=== PATIENT | female | born 1945 | race Caucasian/White ===

== ENCOUNTER 2022-05-19 11:36 | Outpatient (CLI) | payer MEDICARE, OTHER, SELFPAY ==
--- NOTE | 2022-05-19 12:06 | CT_ITS ---
WS: [id number] CT ANGIOGRAM CAROTID ARTERIES HISTORY: TIA/HYPERTENSION TECHNIQUE: CT angiogram is performed of the carotid arteries. During arterial injection imaging is ob tained from the skull base to the aortic arch in 1.25 mm imaging. Coronal and sagittal reformats are submitted, MIP imaging also reviewed. Additional multiplanar reformats of the carotid arteries are frost bmitted. NASCET criteria utilized. All CT scans at [facility] use at least one of these dose optimization techniques: automated exposure control; mA and/or kV adjustment per patient size (includ es targeted exams where dose is matched to clinical indication); or iterative reconstruction. CONTRAST: Omnipaque 350; 95 mL IV. DLP: 289.91 mGy.cm COMPARISON: 06/21/2013 Right carotid: Common carotid artery: Arises from the innominate. Scattered plaque and intimal thickening but no hig h-grade stenosis. Internal carotid artery: Calcification of the bifurcation resulting in less than 50% stenosis. External carotid artery: Patent. Left carotid: Common carotid artery: Common carotid artery arises the from the base of the innominate. There is a s mall amount of calcified plaque. Mild intimal thickening. Internal carotid artery: Calcification at the bifurcation. No high-grade stenosis. External carotid artery: Patent. Right vertebral artery: Nonvisualized innocent heart. There is a very tiny intermittently visualized vertebral artery. Similar to the prior study. Left vertebral artery: Calcification at the origin of the vertebral artery. 50% stenosis at the origi n. Otherwise intact. Subclavian arteries: Dense calcific burden at the origin of the RIGHT subclavian artery. Suspect ther e is a significant stenosis involving the proximal RIGHT subclavian artery. This can be further evalu ated by dedicated ultrasound evaluation. The LEFT subclavian artery is patent. Upper thorax: Significant artifact through the upper thorax. Breathing motion in lung volumes are dec reased. Atherosclerotic plaque visualized thoracic aorta. Thyroid gland: No nodules. Osseous structures: Straightening of the normal cervical lordosis. Skull base: Negative. CT/CT angio neck [id number] IMPRESSION: 1. No significant carotid artery stenosis. Calcification at the bifurcations w ith stenosis less than 50%. No significant progression of disease since the cordelia or examination from 2012. 2. Absent very small caliber RIGHT vertebral artery intermittently visualized. Similar to the prior study. 3. Dense calcified plaque at the origin of the RIGHT subclavian artery. Suspec t there is probably significant stenosis. Recommend dedicated ultrasound evalua tion of the proximal RIGHT subclavian artery.
--- NOTE | 2022-05-19 12:06 | USCV_ITS ---
Tiesha Kaba Age: 76 Gender: F : 1945 Exam Date: 05/19/2022 12:37 Ordering Phys: Ricardo Coronado MD Technologist: Viviana Masters [place] [facility] [place]: Tia and Hypertension BP: / HR: 63 Rhythm: Sinus Technical Quality: Adequate MEASUREMENTS (Male / Female) Normal Values 2D ECHO LV Diastolic Diameter PLAX 4.2 cm 4.2 - 5.9 / 3.9 - 5.3 cm LV Systolic Diameter PLAX 2.8 cm IVS Diastolic Thickness 1.5 cm 0.6 - 1.0 / 0.6 - 0.9 cm IVS Systolic Thickness 2.0 cm LVPW Diastolic Thickness 1.6 cm 0.6 - 1.0 / 0.6 - 0.9 cm LVPW Systolic Thickness 2.0 cm LVOT Diameter 2.0 cm LV Ejection Fraction 2D Teich 62.8 % LV Ejection Fraction MOD 2C 35.6 % LV Ejection Fraction 2C AL 35.4 % LA Diameter 3.7 cm LA Width 4.0 cm LA Height 4.8 cm RA Width 4.2 cm RA Height 4.0 cm Aorta at Sinotubular Diameter 3.0 cm IVC Diameter 2.0 cm M-MODE Aortic Annulus Diameter 3.9 cm LA Ao Ratio MM 1.0 MV E Point Septal Separation 0.4 cm DOPPLER AV Peak Velocity 161.5 cm/s LVOT Peak Velocity 87.0 cm/s AV Area Cont Eq vti 1.9 cm squared AV Area Cont Eq pk 1.8 cm squared MV Area PHT 2.1 cm squared Mitral E to A Ratio 1.1 MV E' Velocity 77.0 cm/s Mitral E to MV E' Ratio 16.9 Mitral E to LV E' Lateral Ratio 28.6 Mitral E to LV E' Septal Ratio 12.0 TR Peak Velocity 272.8 cm/s TR Peak Gradient 29.8 mmHg TR Mean Velocity 199.4 cm/s TR Mean Gradient 18.4 mmHg TR Velocity Time Integral 92.4 cm TV Peak E Velocity 67.0 cm/s Right Atrial Pressure 3.0 mmHg Pulmonary Artery Systolic Pressu 32.8 mmHg PV Peak Velocity 83.3 cm/s RV Acceleration Time 0.1 s RV Ejection Time 0.3 s RV AcT/ET 0.4 FINDINGS Left Ventricle Normal left ventricular size, systolic function and mildly increased wall thickness, with no diagnostic regional wall motion abnormalities. Left ventricular ejection fraction is estimated at 65 %. Grade II diastolic dysfunction, moderately elevated filling pressures. Right Ventricle Normal right ventricular size and systolic function. Right ventricular systolic pressure 38 mmHg. Right Atrium Normal right atrial size. Right atrial pressure estimated at 8 mm Hg. Left Atrium Mildly increased left atrial size. Mitral Valve Severe mitral annular calcification. Trace mitral valve regurgitation. Aortic Valve Moderately thickened and calcified trileaflet aortic valve. Aortic valve sclerosis without significant stenosis. No aortic valve regurgitation. Tricuspid Valve Structurally normal tricuspid valve. Trace to mild tricuspid valve regurgitation. Pulmonic Valve Pulmonic valve not well visualized. No pulmonary valve stenosis. Trace pulmonary valve regurgitation. Pericardium No pericardial effusion. Aorta Normal size aortic root and proximal ascending aorta. IVC Mildly dilated inferior vena cava. CONCLUSIONS 1. Normal left ventricular size, systolic function and mildly increased wall thickness, with no diagnostic regional wall motion abnormalities. Left ventricular ejection fraction is estimated at 65 %. Grade II diastolic dysfunction, moderately elevated filling pressures. 2. Mild pulmonary hypertension with pulmonary pressure estimated at 38 mmHg. 3. Aortic valve sclerosis without significant stenosis. 4. Trace to mild tricuspid valve regurgitation. 5. No prior similar studies to compare. Tatiana Vega MD (Electronically Signed) Final Date: 23 May 2022 10:07 S
[2022-05-19 12:56] LABS: Blood Urea Nitrogen 14 mg/dL (8-23)
[2022-05-19] MEDS: iohexol 350 mg/mL 100 mL Btl IV (13:18)
== END 2022-05-19 11:37 | disposition home or self-care (01) ==
PROVIDERS: Family Provider Family Medicine; PCP Family Medicine; Visit Provider Family Medicine
DX: G45.9 Transient cerebral ischemic attack, unspecified (principal); I10 Essential (primary) hypertension
CPT/HCPCS: 70498; 82565; 84520; 93306

== ENCOUNTER 2022-06-23 14:43 | Inpatient (IN) | payer MEDICARE, OTHER, SELFPAY ==
[2022-06-23] VITALS (12 sets, daily range): BP systolic 103–174; BP diastolic 75–108; PULSE 65–133; RESP 16–30; TEMP 36.6–36.8; O2SAT 94–99; BMI 24.3
--- NOTE | 2022-06-23 14:48 | ED_ITS ---
HPI - SOB/Dyspnea General: Chief Complaint: Shortness of Breath/Dyspnea Stated Complaint: sob Time Seen by Provider: 06/23/22 14:48 History of Present Illness: HPI Narrative: Ms. Kaba is a 76-year-old lady with significant past medical history of hypertension and right subclavian artery occlusion who presents to the emergency department due to respiratory distress. She reports the past few nights noticing a congested feeling and gurgling this in her throat. Prior to presenting to the emergency department earlier today she developed more severe respiratory symptoms including shortness of breath. She does have a cough associated with this. Intensity symptoms is moderate to severe. EMS found patient to be hypoxemic on room air and respiratory distress end administered oxygen. Denies history of lung disease. Apparently recent echocardiogram was unremarkable. She does have sick contacts. No other specific changes in health, exacerbating, or alleviating factors identified. Onset (ago): hour(s) Timing: progressively worsening Severity: severe Review of Systems General: Reports: 10 or more systems reviewed and unremarkable except in HPI and below PFSH ED PFSH: Medical History (Updated 06/28/22 @ 00:01 by ) CAD (coronary artery disease) History of TIA (transient ischemic attack) Hyperlipemia Hypertension Right subclavian artery occlusion Physical Exam Const: COMMON NORMALS: alert GENERAL APPEARANCE: cooperative, well developed, in distress and ill appearing HENMT: COMMON NORMALS: normocephalic and atraumatic HEAD & SCALP: normocephalic and atraumatic Eye: COMMON NORMALS: conjunctivae normal CONJUNCTIVA: Yes conjunctivae normal SCLERA: sclerae normal Neck/C-Spine: COMMON NORMALS: supple GENERAL: Yes trachea midline Resp: EFFORT & INSPECTION: Yes tachypneic and Yes respiratory distress AU SCULTATION: rhonchi Cardio: COMMON NORMALS: regular rate and regular rhythm RATE: regular rate RHYTHM: regular rhythm GI: COMMON NORMALS: Soft to palpation PALPATION: Yes Soft to palpation and No Tenderness to palpation present (GI) PERCUSSION: normal to percussion Extremity: GENERAL: Yes normal exam except as noted and No edema Neuro: COMMON NORMALS: moves all extremities SENSORIUM/ORIENTATION: Yes alert and No Orientation impaired Psych: COMMON NORMALS: mental status grossly normal and Normal thought process present THOUGHT PROCESS: Normal thought process present Course ED course: - Patient was seen and evaluated by me at bedside - Patient placed on cardiac monitors, IV access obtained - Initial evaluation notable for coarse breath sounds, respiratory distress with tachypnea. - Labs and xrays personally interpreted by me. EKG shows sinus rhythm with nonspecific ST segment abnormalities. No STEMI. -BiPAP ordered. Aspirin and antibiotics given. - Labs notable for leukocytosis, normal hemoglobin. Metabolic panel with mild hyponatremia, BNP elevated. COVID-negative. - Imaging notable for bilateral infiltrates concerning for pneumonia or pulmonary edema. - Upon serial reexamination after treatment the patient was significantly improved with BiPAP - Based on patient history, evaluation, and testing as interpreted the most likely cause of the patient's condition is pneumonia. Antibiotics ordered. - The results of ED evaluation were discussed with the patient including plan for admission due to requirement for level of care not available if discharged to prevent significant worsening/deterioration. - Admitting service was contacted and Dr Melton with the hospitalist service agreed to admit the patient - Patient was admitted without further deterioration or significant events. Note: Click bubbles or prepopulated grayson in note writing are used for assistance with data collection and billing and are inherently more limited than narrative and other text portions of this note. Please use narrative for additional clinical history and defer to narrative/free test for any case of contradictory information. If information appears in only free text or click bubble it should be considered present or absent as reported. Please contact note journalists and other writers for clarifications of clinical information or contradictory information. MDM is a brief summary, contradictory or erroneous seeming information should be clarified and full note should be reviewed. Vital Signs: Vital signs: Vital Signs Temperature 98.2 F 06/27/22 11:49 Pulse Rate 75 06/27/22 11:49 Respiratory Rate 20 H 06/27/22 11:49 Blood Pressure 161/78 06/27/22 11:49 Pulse Oximetry 93 06/27/22 11:49 Oxygen Delivery Co thod 06/27/22 11:49 Oxygen Flow Rate 2 06/27/22 03:36 Fraction of Inspir ed Oxygen 35 06/26/22 16:00 MDM - SOB/Dyspnea Medical Decision Making 76-year-old lady presenting with respiratory distress found to have NSTEMI. Exact etiology is uncertain pneumonia versus acute flash pulmonary edema. Admitted to hospital for further management on BiPAP. Medical Records I reviewed the patient's medical records. Lab Data I reviewed the patient's lab results. : 06/26/22 05:27 06/26/22 05:27 Labs/Radiology: Radiology Impressions Chest X-Ray 06/27/22 13:57 IMPRESSION: 1. Cardiomegaly. 2. Diffuse interstial edema. Laboratory Results WBC 13.4 10^3/uL (4.0-10.0) H 06/23/22 15:23 RBC 4.93 10^6/uL (4.1-5.3) 06/23/22 15: Hgb 14.6 g/dL (11.5-15.3) 06/23/22 15: Hct 45.8 % (37.0-47.0) 06/23/22 15: MCV 92.9 fl (81-99) 06/23/22 15: MCH 29.6 pg (28.0-34.0) 06/23/22 15: MCHC 31.9 g/dL (30.0-36.0) 06/23/22: RDW 12.4 % (12.1-15.1) 06/23/22 15: Plt Count 390 10^3/cmm (130-400) 06/23/22 15: MPV 9.6 fL (7.4-10.4) 06/23/22 15: Neut % (Auto) 85.6 % 06/23/22: Lymph % (Auto) 8.3 % 06/23/22:23 Potter % (Auto) 4.6 % 06/23/22: Eos % (Auto) 0.7 % 06/23/22: Baso % (Auto) 0.4 % 06/23/22:23 Neut # (Auto) 11.46 10^3/uL (1.8-7.7) H 06/23/22 15:23 Lymph # (Auto) 1.1 10^3/uL (0.8-4.8) 06/23/22: Potter # (Auto) 0.6 10^3/uL (0.2-0.9) 06/23/22 15:23 Eos # (Auto) 0.1 10^3/uL (0.0-0.8) 06/23/22: Baso # (Auto) 0.1 10^3/uL (0.0-0.1) 06/23/22 15:23 Nucleated RBC % (auto) 0 % 06/23/22 15:23 Nucleated RBCs # 0.0 /100WBC 06/23/22 15:23 PT 13.30 SECONDS (12.1-14.9) 06/23/22 15:52 INR 0.99 (0.8-1.2) 06/23/22 15:52 Specimen Type Arterial 06/23/22 15:58 Sample Site Radial, left 06/23/22 15:58 ABG pH 7.39 (7.35-7.45) 06/23/22 15:58 ABG pCO2 40.4 mmHg (35-45) 06/23/22 15:58 ABG pO2 110.0 mmHg (80.0-100.0) H 06/23/22 15:58 ABG HCO3 24.6 mmol/L (22-26) 06/23/22 15:58 ABG Base Excess -0.3 mmol/L (-2.0-2.0) 06/23/22 15:58 Clement Test Pos 06/23/22 15:58 Hematocrit 43.0 % (37-47) 06/23/22 15:58 Hgb O2 Saturation 96.9 % (95-100) 06/23/22 15:58 Carboxyhemoglobin 1.0 %THgb (0.4-20.1) 06/23/22 15:58 Methemoglobin 0.9 % (0.4-1.5) 06/23/22 15:58 Total Hemoglobin 14.0 g/dL (12-16) 06/23/22 15:58 O2 Delivery Device Bipap 06/23/22 15:58 FiO2 40.0 % 06/23/22 15:58 Recycling Program Manager ID Cak 06/23/22 15:58 Sodium 134 mmol/L (136-145) L 06/23/22 15:52 Potassium 4.3 mmol/L (3.5-5.1) 06/23/22 15:52 Chloride 100 mmol/L (98-107) 06/23/22 15:52 Carbon Dioxide 24 mmol/L (22-29) 06/23/22 15:52 Anion Gap 14.3 (5-19) 06/23/22 15:52 BUN 15 mg/dL (8-23) 06/23/22 15:52 Creatinine 0.6 mg/dL (0.5-0.9) 06/23/22 15:52 GFR Calculation Not Reportable 06/23/22 15:52 Glucose 112 mg/dL (65-115) 06/23/22 15:52 Calculated Osmolality 280 mOsm/kg (285-295) L 06/23/22 15:52 Lactic Acid 2.2 mmol/L (0.5-2.2) 06/23/22 15:23 Calcium 8.7 mg/dL (8.5-10.5) 06/23/22 15:52 Total Bilirubin 0.6 mg/dL (0.15-1.2) 06/23/22 15:52 AST 14 U/L (0-32) 06/23/22 15:52 ALT 10 U/L (0-33) 06/23/22 15:52 Alkaline Phosphatase 81 U/L (35-105) 06/23/22 15:52 Troponin T Baseline 65 ng/L (0-10) H 06/23/22 15:23 Troponin T 120 Minute 129.1 ng/L (0-10) H 06/23/22 16:53 Delta Troponin T 64.1 ABS# (0-10) H* 06/23/22 16:53 NT-Pro-B Natriuret Pep 1263 pg/mL (0-450) H 06/23/22 15:52 Total Protein 6.5 g/dL (6.6-8.7) L 06/23/22 15:52 Albumin 3.7 g/dL (3.5-5.2) 06/23/22 15:52 Globulin 2.8 g/dL (1.3-4.6) 06/23/22 15:52 SARS-CoV-2 Ag (Rapid) Negative (Negative) 06/23/22 15:35 Critical Care Time Critical Care Time: Critical Care Time: Yes Total Critical Care Time: 50 Attestation: Due to a high probability of clinically significant, possibly life threatening deterioration, the patient required my highest level of attention and preparedness to intervene emergently and I personally spent this critical care time directly and personally managing the patient. This critical care time inclu ded obtaining a history; examining the patient; pulse oximetry; ordering and review of laboratory and imaging studies; arranging urgent treatment with development of a management plan; evaluation of patient's response to treatment; frequent reassessment; and, discussions with other providers as applicable. It was exclusive of separately billable procedures. Primary system involved is cardiopulmonary Discharge Plan Discharge Patient Disposition: Admitted As Inpatient Admit Provider: Kodi Melton Clinical Impression: Community acquired pneumonia, Acute respiratory distress, Acute non-ST elevation myocardial infarction (NSTEMI) Condition: Stable Discharge Diet: Cardiac and Low Fat Discharge Activity: Limit activity as instructed Coding Level of Care Code ED Bookkeeping Manager for Chg Fwd Exam Comprehensive
--- NOTE | 2022-06-23 15:03 | PC.NURSE ---
Patient arrives by EMS SOB since yesterday afternoon. Pt refused IV placement enroute per EMS and requesting her family member who is a nurse at this hospital to insert IV. Family member at bedside upon pts arrival to ER. Family member attempted IV 3 times; right hand x 1, and right forearm x 2.
--- NOTE | 2022-06-23 15:04 | XR_ITS ---
WS: [id number] Exam: XR chest 1V portable [id number] Date/Time of Exam: 06/23/2022 3:21 PM Reason For Exam: sob No priors. Extensive interstitial and airspace infiltrates throughout both lungs. The heart is enlarged. No pleu ral effusions. No pneumothorax. The mediastinum is unremarkable for technique. Bony structures are in tact. XR/XR chest 1V portable [id number] IMPRESSION: 1. Extensive interstitial and airspace infiltrates throughout both lungs. This could represent pneumonia or acute pulmonary edema. 2. Cardiac enlargement.
--- NOTE | 2022-06-23 15:11 | ECG_ITS ---
[facility] Test Date: 2022-06-23 Pat Name: Tiesha Kaba Department: Room: Gender: Female Calenderer: : 1945 Requested By: Jarod Berumen Order Number: [id number] Martita MD: Adams Guzman M.D. Measurements Intervals [place] Rate: 87 P: 2 OR: 151 QRS: -25 QRSD: 119 T: 104 QT: 358 QTc: 431 Interpretive Statements SINUS RHYTHM BORDERLINE LEFT AXIS DEVIATION [QRS AXIS < -20] MODERATE INTRAVENTRICULAR CONDUCTION DELAY [110+ ms QRS DURATION] ST DEVIATION AND MODERATE T-WAVE ABNORMALITY, CONSIDER LATERAL ISCHEMIA [-0.1+ mV T-WAVE IN I/aVL/V5/V6] Compared to ECG 05/19/2017 13:51:19 Intraventricular conduction delay now present T-wave abnormality now present Possible ischemia now present Myocardial infarct finding no longer present Electronically Signed On 06-24-2022 15:37:12 CDT by Adams Guzman M.D. [id number] f
[2022-06-23 15:30] LABS: Basophils # 0.1 10^3/uL (0.0-0.1); Basophils % 0.4 %; Eosinophils # 0.1 10^3/uL (0.0-0.8); Eosinophils % 0.7 %; Hematocrit 45.8 % (37.0-47.0); Hemoglobin 14.6 g/dL (11.5-15.3); Lymphocytes # 1.1 10^3/uL (0.8-4.8); Lymphocytes % 8.3 %; Mean Corpuscular HGB Conc 31.9 g/dL (30.0-36.0); Mean Corpuscular Hemoglobin 29.6 pg (28.0-34.0); Mean Corpuscular Volume 92.9 fl (81-99); Mean Platelet Volume 9.6 fL (7.4-10.4); Monocytes # 0.6 10^3/uL (0.2-0.9); Monocytes % 4.6 %; Neutrophils # 11.46 10^3/uL (1.8-7.7); Neutrophils % 85.6 %; Nucleated Red Blood Cells % 0 %; Platelet Count 390 10^3/cmm (130-400); Red Blood Count 4.93 10^6/uL (4.1-5.3); Red Cell Distribution Width 12.4 % (12.1-15.1); White Blood Count 13.4 10^3/uL (4.0-10.0)
[2022-06-23 15:50] LABS: Lactic Sepsis W/Reflex 2.2 mmol/L (0.5-2.2)
[2022-06-23 15:53] LABS: Troponin(5th) Baseline 65 ng/L (0-10)
[2022-06-23 16:03] LABS: ABG PCO2 40.4 mmHg (35-45); ABG PH Result 7.39 (7.35-7.45); Base Excess ABG -0.3 mmol/L (-2.0-2.0); Blood Gas Allen Test Pos; Blood Gas Operator Identificat CAK; Blood Gas Sample Site Radial, left; Blood Gas Sample Type Arterial; HCO3 ABG 24.6 mmol/L (22-26); HGB O2 Sat 96.9 % (95-100); Methemoglobin 0.9 % (0.4-1.5); Oxygen Device BIPAP
[2022-06-23 16:25] LABS: SARS Covid-2 Antigen Negative (Negative)
[2022-06-23 16:34] LABS: Alanine Aminotransferase 10 U/L (0-33); Albumin Level 3.7 g/dL (3.5-5.2); Alkaline Phosphatase 81 U/L (35-105); Anion Gap 14.3 (5-19); Aspartate Amino Transferase 14 U/L (0-32); Blood Urea Nitrogen 15 mg/dL (8-23); Calcium 8.7 mg/dL (8.5-10.5); Carbon Dioxide 24 mmol/L (22-29); Chloride 100 mmol/L (98-107); Globulin 2.8 g/dL (1.3-4.6); Glucose 112 mg/dL (65-115); NT Pro B Type Natriuretic Pept 1263 pg/mL (0-450); Osmolality Calculated 280 mOsm/kg (285-295); Potassium 4.3 mmol/L (3.5-5.1); Sodium 134 mmol/L (136-145); Total Bilirubin 0.6 mg/dL (0.15-1.2); Total Protein 6.5 g/dL (6.6-8.7)
[2022-06-23 16:36] LABS: INR 0.99 (0.8-1.2)
[2022-06-23] MEDS: cefTRIAXone 1,000 MG in sodium chloride 0.9% (plus) 50 ML 100 MG IV (17:01)
--- NOTE | 2022-06-23 17:04 | ECG_ITS ---
[facility] Test Date: 2022-06-23 Pat Name: Tiesha Kaba Department: Room: Gender: Female Motel Manager: : 1945 Requested By: Jarod Berumen Order Number: [id number] Martita MD: Adams Guzman M.D. Measurements Intervals [place] Rate: 87 P: 20 VT: 161 QRS: -28 QRSD: 118 T: 122 QT: 352 QTc: 426 Interpretive Statements SINUS RHYTHM BORDERLINE LEFT AXIS DEVIATION [QRS AXIS < -20] MODERATE INTRAVENTRICULAR CONDUCTION DELAY [110+ ms QRS DURATION] ST DEVIATION AND MODERATE T-WAVE ABNORMALITY, CONSIDER LATERAL ISCHEMIA [-0.1+ mV T-WAVE IN I/aVL/V5/V6] Compared to ECG 06/23/2022 15:11:33 No significant changes Electronically Signed On 06-24-2022 15:50:57 CDT by Adams Guzman M.D. [id number]
[2022-06-23 17:15] LABS: Reflex Lactate Order REFLEX LACTIC ORDERD
[2022-06-23] MEDS: doxycycline 100 MG in sodium chloride 0.9% (plus) 100 ML IV (17:35)
[2022-06-23 18:04] LABS: Troponin 5 2HR 129.1 ng/L (0-10); Troponin 5 2HR Delta 64.1 ABS# (0-10)
[2022-06-23] MEDS: aspirin 81 mg Chew Tablet 324 MG PO (18:19)
[2022-06-23] MEDS: enoxaparin 80 mg/0.8 mL Syringe 75 MG SUBCUT (18:19)
--- NOTE | 2022-06-23 18:25 | PM.CONSULT ---
Providers/Reason For Consult Consulting Physician/Specialty*: ELKIN Guzman MD/cardiology Reason for Consult*: Patient with elevated troponin T Requesting Physician: Dr. Melton Primary Care Provider: Ricardo Coronado MD History of Present Illness History of Present Illness Tiesha Kaba is a 76 year old female with a history of uncontrolled blood pressure, TIA, right subclavian artery stenosis, now is present with complaints of palpitation and shortness of breath. According the patient, she has a history of palpitation off and on for the last many years. But for the last couple of days, she been having more fluttering in the neck area. She also was having some amount of shortness of breath which acutely got worse today. She has not had any chest pain. No fever or chills. No significant cough. Because of the worsening of her shortness of breath, she was brought to the hospital. Patient was found to be hypoxemic in the emergency room. She was placed on BiPAP. Currently she has significant improvement of the shortness of breath. She also was found to have bilateral airspace densities in the chest x-ray. Possibility of pneumonia was considered. She is on IV antibiotics. Her troponin I was elevated with a significant delta in 2 hours. She has a longstanding history of hypertension. She has intolerance to many antihypertensive medications. She had many medication changes in the recent past. Most recently, she has been taking clonidine and propranolol. She has no history for heart failure. No history for coronary artery disease, myocardial infarction or congestive heart failure. Few weeks ago, she developed a TIA symptoms. As a part of the work-up, she had CTA of the neck and an echocardiogram. The CTA revealed possible high-grade lesion at the origin of the right subclavian artery. She had a less than 50% stenosis at the right bifurcation. Echocardiogram revealed normal LV size ejection fraction of around 65%. Patient was found to be in atrial fibrillation rapid ventricular rate on the monitor in the emergency room. Heart rate was in the 150s. Review of Systems Narrative: CONSTITUTIONAL: No fever or chills. Weakness and shortness of breath as mentioned above EYES: No blurring of vision or other visual disturbances lately. ENT: No hoarseness of voice, auditory disturbances or sore throat. CARDIOVASCULAR: As mentioned above. RESPIRATORY: Shortness of breath as mentioned above GASTROINTESTINAL: No hematemesis or melena. GENITOURINARY: No dysuria or hematuria. INTEGUMENTARY: No skin rashes or history of skin cancer. NEURO: Recent TIA PSYCHIATRIC: No history of psychosis or major depression. HEMATOLOGIC: No bleeding disorders or significant anemia. ENDOCRINE: No history of polyuria or polydipsia. MUSCULOSKELETAL: No recent joint pain or swelling. ALLERGY/IMMUNOLOGY: As mentioned above. Medications/Allergies Home Medications Medication Instructions Recorded Confirmed Last Taken Type clonidine HCl 0.1 mg tablet 0.05 mg PO TID 05/17/22 06/23/22 06/23/22 History propranolol 10 mg tablet 10 mg PO BID 05/17/22 06/23/22 06/23/22 History Usana Antioxidant 1 tab PO DAILY 06/23/22 06/23/22 06/23/22 History Usana Eye Vitamins 1 tab PO DAILY 06/23/22 06/23/22 06/23/22 History Usana Multi-Vitamin Womens 1 tab PO DAILY 06/23/22 06/23/22 06/23/22 History aspirin 81 mg tablet,delayed 81 mg PO DAILY 06/23/22 06/23/22 06/23/22 History release Allergies Allergy/AdvReac Type Severity Reaction Status Date / Time Penicillins Allergy ALGY-Rash Verified 06/23/22 15:42 PFSH Acute PFSH: Medical History History of TIA (transient ischemic attack) Hypertension Right subclavian artery occlusion Vitals/I&O/Wt Last Vital Signs Temp 97.9 F 06/23/22 14:47 Pulse 65 06/23/22 17:43 Resp 20 H 06/23/22 17:34 BP 151/97 06/23/22 17:34 Pulse Ox 98 06/23/22 17:43 O2 Del Method 06/23/22 17:34 O2 Flow Rate 10 06/23/22 14:47 FiO2 35 06/23/22 17:43 06/23/22 06/23/22 06/23/22 06:59 14:59 22:59 Intake Total 50 / 50 Balance 50 / 50 Weight last 48 hrs Weight 160 lb Physical Exam Narrative: GENERAL: The patient is alert and oriented times three. Currently on a BiPAP HEENT: No significant pallor, icterus or lymphadenopathy.Oral cavity: There are no mucous membrane lesions. NECK: Trachea appears to be central. No masses noted. No JVD or thyromegaly appreciated. RESPIRATORY: Breath sounds heard bilaterally with a scattered coarse crackles. Few fine rales at the base. Occasional expiratory wheezing. BREASTS: Deferred. HEART: The heart sounds are normal. No S3 or S4. Short systolic murmur at the base of the heart. No diastolic murmurs.. No pericardial rub ABDOMEN: No vessel pulsations or distention. No tenderness. No organomegaly appreciated. Bowel sounds are normally heard. : Deferred. RECTAL: Deferred. LYMPHATIC: No lymphadenopathy noted in the neck. EXTREMITIES: No edema or cyanosis. No clubbing. MUSCULOSKELETAL: No acute joint deformities or swelling SKIN: There are no significant rashes or ecchymosis NEUROPSYCHIATRIC: The patient is alert and oriented x3. Appears to be in a good mood. No tremors or rigidity noted. Data : 06/23/22 15:23 06/23/22 15:52 Other Labs: Laboratory Last Values WBC 13.4 10^3/uL (4.0-10.0) H 06/23/22 15:23 RBC 4.93 10^6/uL (4.1-5.3) 06/23/22 15:23 Hgb 14.6 g/dL (11.5-15.3) 06/23/22 15:23 Hct 45.8 % (37.0-47.0) 06/23/22 15:23 MCV 92.9 fl (81-99) 06/23/22 15:23 MCH 29.6 pg (28.0-34.0) 06/23/22 15:23 MCHC 31.9 g/dL (30.0-36.0) 06/23/22 15:23 RDW 12.4 % (12.1-15.1) 06/23/22 15:23 Plt Count 390 10^3/cmm (130-400) 06/23/22 15:23 MPV 9.6 fL (7.4-10.4) 06/23/22 15:23 Neut % (Auto) 85.6 % 06/23/22 15:23 Lymph % (Auto) 8.3 % 06/23/22 15:23 [place] % (Auto) 4.6 % 06/23/22 15:23 Eos % (Auto) 0.7 % 06/23/22 15:23 Baso % (Auto) 0.4 % 06/23/22 15:23 Neut # (Auto) 11.46 10^3/uL (1.8-7.7) H 06/23/22 15:23 Lymph # (Auto) 1.1 10^3/uL (0.8-4.8) 06/23/22 15:23 [place] # (Auto) 0.6 10^3/uL (0.2-0.9) 06/23/22 15:23 Eos # (Auto) 0.1 10^3/uL (0.0-0.8) 06/23/22 15:23 Baso # (Auto) 0.1 10^3/uL (0.0-0.1) 06/23/22 15:23 Nucleated RBC % (auto) 0 % 06/23/22 15: Nucleated RBCs # 0.0 /100WBC 06/23/22 15:23 PT 13.30 SECONDS (12.1-14.9) 06/23/22 15:52 INR 0.99 (0.8-1.2) 06/23/22 15:52 Specimen Type Arterial 06/23/22 15:58 Sample Site Radial, left 06/23/22 15:58 ABG pH 7.39 (7.35-7.45) 06/23/22 15:58 ABG pCO2 40.4 mmHg (35-45) 06/23/22 15:58 ABG pO2 110.0 mmHg (80.0-100.0) H 06/23/22 15:58 ABG HCO3 24.6 mmol/L (22-26) 06/23/22 15:58 ABG Base Excess -0.3 mmol/L (-2.0-2.0) 06/23/22 15:58 Clement Test Pos 06/23/22 15:58 Hematocrit 43.0 % (37-47) 06/23/22 15:58 Hgb O2 Saturation 96.9 % (95-100) 06/23/22 15:58 Carboxyhemoglobin 1.0 %THgb (0.4-20.1) 06/23/22 15:58 Methemoglobin 0.9 % (0.4-1.5) 06/23/22 15:58 Total Hemoglobin 14.0 g/dL (12-16) 06/23/22 15:58 O2 Delivery Device Bipap 06/23/22 15:58 FiO2 40.0 % 06/23/22 15:58 Double Backer ID Cak 06/23/22 15:58 Sodium 134 mmol/L (136-145) L 06/23/22 15:52 Potassium 4.3 mmol/L (3.5-5.1) 06/23/22 15:52 Chloride 100 mmol/L (98-107) 06/23/22 15:52 Carbon Dioxide 24 mmol/L (22-29) 06/23/22 15:52 Anion Gap 14.3 (5-19) 06/23/22 15:52 BUN 15 mg/dL (8-23) 06/23/22 15:52 Creatinine 0.6 mg/dL (0.5-0.9) 06/23/22 15:52 GFR Calculation Not Reportable 06/23/22 15:52 Glucose 112 mg/dL (65-115) 06/23/22 15:52 Calculated Osmolality 280 mOsm/kg (285-295) L 06/23/22 15:52 Lactic Acid 2.2 mmol/L (0.5-2.2) 06/23/22 15:23 Lactic Acid (Sepsis) 1.4 mmol/L (0.5-2.2) 06/23/22 19:14 Calcium 8.7 mg/dL (8.5-10.5) 06/23/22 15:52 Total Bilirubin 0.6 mg/dL (0.15-1.2) 06/23/22 15:52 AST 14 U/L (0-32) 06/23/22 15:52 ALT 10 U/L (0-33) 06/23/22 15:52 Alkaline Phosphatase 81 U/L (35-105) 06/23/22 15:52 Troponin T Baseline 65 ng/L (0-10) H 06/23/22 15:23 Troponin T 120 Minute 129.1 ng/L (0-10) H 06/23/22 16:53 Delta Troponin T 64.1 ABS# (0-10) H* 06/23/22 16:53 NT-Pro-B Natriuret Pep 1263 pg/mL (0-450) H 06/23/22 15:52 Total Protein 6.5 g/dL (6.6-8.7) L 06/23/22 15:52 Albumin 3.7 g/dL (3.5-5.2) 06/23/22 15:52 Globulin 2.8 g/dL (1.3-4.6) 06/23/22 15:52 SARS-CoV-2 Ag (Rapid) Negative (Negative) 06/23/22 15:35 05/19/2022 1.? No significant carotid artery stenosis. Calcification at the bifurcations with stenosis less than 50%. No significant progression of disease since the prior examination from 2012. 2.? Absent very small caliber RIGHT vertebral artery intermittently visualized. Similar to the prior study. 3.? Dense calcified plaque at the origin of the RIGHT subclavian artery. Suspect there is probably significant stenosis. Recommend dedicated ultrasound evaluation of the proximal RIGHT subclavian artery. ? ? Micro: Microbiology 06/23/22 16:53 Blood Culture - Preliminary Blood SPECIMEN COLLECTED 06/23/22 15:52 Blood Culture - Preliminary Blood SPECIMEN COLLECTED EKG 1: My Interpretation: Sinus rhythm with a rate of 87 bpm. QS pattern in lead V2. Nonspecific T wave changes in the anterolateral leads. Left axis deviation. Nonspecific IVCD. EKG computer-generated impression: Chest X-Ray 06/23/22 15:04 IMPRESSION: 1. Extensive interstitial and airspace infiltrates throughout both lungs. This could represent pneumonia or acute pulmonary edema. 2. Cardiac enlargement. EKG 2: My Interpretation: She was found to be in atrial fibrillation rapid ventricular rate with a heart rate in the 150s, on the monitor EKG computer-generated impression: Chest X-Ray 06/23/22 15:04 IMPRESSION: 1. Extensive interstitial and airspace infiltrates throughout both lungs. This could represent pneumonia or acute pulmonary edema. 2. Cardiac enlargement. A&P Assessment and plan (1) Acute pulmonary edema with congestive heart failure: Patient seems to have features of an acute pulmonary edema. She has a significant drop in the LV ejection fraction from few weeks ago. Most likely she has an underlying coronary ischemia. This needs to be further evaluated. She may be treated with the IV diuretics, subcu Lovenox, beta-blockers, aspirin, Plavix and other symptomatic measures. Topical nitrates also would be appropriate, if the blood pressure tolerates. Status: Acute (2) Acute non-ST elevation myocardial infarction (NSTEMI): Patient may require a cardiac catheterization to further evaluate the coronary status. We may consider this after treating the heart failure and the atrial fibrillation appropriately. Status: Acute (3) Atrial fibrillation with rapid ventricular response: Patient seems to be in intermittent atrial fibrillation. Because of LV dysfunction, I may start her on amiodarone 400 mg p.o. now at twice daily Status: Acute (4) Hypertension: Need to be closely monitored. Currently the blood pressure seems to be getting under control. Status: Acute (5) Right subclavian artery occlusion: She seems to be fairly asymptomatic at this time. This may need to be further evaluated with an angiogram Status: Acute (6) Community acquired pneumonia: Management as per the primary service Status: Acute Plan I will be reviewing the echocardiogram. Once the heart failure and the atrial fibrillation are appropriately treated, consider cardiac catheterization to further evaluate the coronary arteries. Based on the clinical progress, further recommendations will be made. Thank you for the opportunity to eval this patient and make these recommendations Coding Level of Care Code Acute Outside Physical Damage Appraiser for Carlito Quick Diagnoses Acute pulmonary edema with congestive heart failure I50.1 Acute non-ST elevation myocardial infarction (NSTEMI) I21.4 Atrial fibrillation with rapid ventricular response I48.91 Hypertension I10 Right subclavian artery occlusion I70.8 Community acquired pneumonia J18.9
--- NOTE | 2022-06-23 18:27 | USCV_ITS ---
Tiesha Kaba Age: 76 Gender: F : 1945 Exam Date: 06/23/2022 19:22 Ordering Phys: Kodi Melton MD Technologist: EVY [place] [facility] [place]: hypoxia, NSTEMI BP: 151 / 97 HR: 125 Rhythm: Atrial fibrillation with rapid ventricular response Technical Quality: Adequate MEASUREMENTS (Male / Female) Normal Values 2D ECHO LV Diastolic Diameter PLAX 4.4 cm 4.2 - 5.9 / 3.9 - 5.3 cm LV Systolic Diameter PLAX 3.8 cm IVS Diastolic Thickness 1.9 cm 0.6 - 1.0 / 0.6 - 0.9 cm IVS Systolic Thickness 2.2 cm LVPW Diastolic Thickness 1.8 cm 0.6 - 1.0 / 0.6 - 0.9 cm LVPW Systolic Thickness 1.8 cm LVOT Diameter 1.8 cm LV Ejection Fraction 2D Teich 32.1 % LV Ejection Fraction MOD 2C 33.7 % LV Ejection Fraction 2C AL 30.9 % LA Diameter 4.6 cm LA Width 5.3 cm LA Height 6.2 cm RA Width 3.4 cm RA Height 5.2 cm Aorta at Sinotubular Diameter 2.9 cm M-MODE Aortic Annulus Diameter 3.1 cm LA Ao Ratio MM 1.6 MV E Point Septal Separation 1.2 cm DOPPLER AV Peak Velocity 151.0 cm/s LVOT Peak Velocity 84.0 cm/s AV Area Cont Eq vti 1.3 cm squared AV Area Cont Eq pk 1.5 cm squared MV Area PHT 4.4 cm squared Mitral E to A Ratio 257.3 MV E' Velocity 109.5 cm/s Mitral E to MV E' Ratio 19.8 Mitral E to LV E' Lateral Ratio 16.3 Mitral E to LV E' Septal Ratio 25.1 TR Peak Velocity 261.8 cm/s TR Peak Gradient 27.4 mmHg TV Peak E Velocity 50.0 cm/s PV Peak Velocity 100.0 cm/s RV Acceleration Time 0.0 s RV Ejection Time 0.3 s RV AcT/ET 0.1 FINDINGS Left Ventricle Moderate concentric left ventricular hypertrophy. LV ejection fraction around 45%(visual). Diffuse hypokinesis of the left ventricle. Patient was found to be in atrial fibrillation with rapid ventricular rate. Ejection fraction estimation could be misleading because of the arrhythmia.Grade III/IV diastolic dysfunction (restrictive filling pattern), severely elevated filling pressures. Severely increased left ventricular mass. Right Ventricle Normal right ventricular size and systolic function. Right Atrium Normal right atrial size. Left Atrium Mildly increased left atrial size. Mitral Valve Thickened mitral valve. Moderate mitral annular calcification. Aortic Valve Thickened aortic valve. Tricuspid Valve .mild tricuspid valve regurgitation. Mild pulmonary hypertension with an estimated pulmonary artery peak systolic pressure 45 mmHg Pulmonic Valve Mild pulmonary valve regurgitation. Pericardium No pericardial effusion. Aorta Normal aortic annulus size. IVC Dilated IVC with decreased respiratory variation. CONCLUSIONS Moderate concentric left ventricular hypertrophy. LV ejection fraction around 45%(visual). Diffuse hypokinesis of the left ventricle. (Patient was found to be in atrial fibrillation with rapid ventricular rate during the study. Ejection fraction estimation could be misleading because of the arrhythmia.) Grade III/IV diastolic dysfunction (restrictive filling pattern), severely elevated filling pressures. Severely increased left ventricular mass. Mildly increased left atrial size. Thickened mitral valve. Moderate mitral annular calcification. Mild tricuspid valve regurgitation. Mild pulmonary hypertension with an estimated pulmonary artery peak systolic pressure 45 mmHg. Thickened aortic valve. Mild pulmonary valve regurgitation. Compared to the study from 05/19/2022, there is a decline in the LV ejection fraction, possibly from the arrhythmia Dr Adams Guzman MD [facility] (Electronically Signed) Final Date: 23 June 2022 21:24 S
--- NOTE | 2022-06-23 18:28 | PM.HP ---
Providers/Chief Complaint Primary Care Provider: Ricardo Coronado MD Chief Complaint: sob History of Present Illness Tiesha Kaba is a 76 year old female with past medical history of HTN, right subclavian artery stenosis,TIA, came in with chief complaint of acute onset of shortness of breath, started today progressively worsening , with some occasional cough, she denied any chest pain, diaphoresis, nausea vomiting, fever, sick contact.When EMS arrived at the scene, she was in respiratory distress as well as hypoxic. On arrival in the ER she was placed on BiPAP Upon arrival in the ER: She was worked up for above-mentioned complaint. Pertinent imaging studies: X-ray chest: Extensive interstitial and airspace infiltrates throughout both lungs. This could represent pneumonia or acute pulmonary edema. EKG: SINUS RHYTHM , BORDERLINE LEFT AXIS DEVIATION, MODERATE INTRAVENTRICULAR CONDUCTION DELAY. Pertinent labs: WBC 13.4, H&H:14/45 , PLT : 390 , serum sodium 134 , serum potassium 4.3 , BUN and serum creatinine 15 and 0.6 Troponin trend:65-129 - proBNP: 1263 ABG: pH 7.39 PCO2 40 PO2 110, FiO2 40% Rapid COVID-negative Review of Systems General: Reports: 10 or more systems reviewed and unremarkable except in HPI and below Const: Denies: fever(s), chills, body aches, change in appetite or diaphoresis Card: Reports: dyspnea on exertion; Denies: palpitations, edema, orthopnea or leg pain with exertion Resp: Reports: dyspnea; Denies: productive cough, wheezing or pain on inspiration GI: Denies: abdominal pain, nausea, vomiting, diarrhea or constipation : Denies: flank pain Musc: Denies: back pain, extremity pain or extremity swelling Neuro: Denies: headache(s), difficulty walking or confusion Medications/Allergies Home Medications Medication Instructions Recorded Confirmed Last Taken Type clonidine HCl 0.1 mg tablet 0.05 mg PO TID 05/17/22 06/23/22 06/23/22 History propranolol 10 mg tablet 10 mg PO BID 05/17/22 06/23/22 06/23/22 History Usana Antioxidant 1 tab PO DAILY 06/23/22 06/23/22 06/23/22 History Usana Eye Vitamins 1 tab PO DAILY 06/23/22 06/23/22 06/23/22 History Usana Multi-Vitamin Womens 1 tab PO DAILY 06/23/22 06/23/22 06/23/22 History aspirin 81 mg tablet,delayed 81 mg PO DAILY 06/23/22 06/23/22 06/23/22 History release Allergies Allergy/AdvReac Type Severity Reaction Status Date / Time Penicillins Allergy ALGY-Rash Verified 06/23/22 15:42 PFSH Acute PFSH: Medical History Hypertension Right subclavian artery occlusion Vitals/I&O/Wt Last Vital Signs Temp 97.9 F 06/23/22 14:47 Pulse 65 06/23/22 17:43 Resp 20 H 06/23/22 17:34 BP 151/97 06/23/22 17:34 Pulse Ox 98 06/23/22 17:43 O2 Del Method 06/23/22 17:34 O2 Flow Rate 10 06/23/22 14:47 FiO2 35 06/23/22 17:43 06/23/22 06/23/22 06/23/22 06:59 14:59 22:59 Intake Total 50 / 50 Balance 50 / 50 Weight last 48 hrs Weight 72.575 kg Physical Exam Const: COMMON NORMALS: patient oriented x3 Resp: COMMON NORMALS: No use of accessory muscles and clear to auscultation bilaterally OTHER: Minimal occasional b/l basal crackles Cardio: COMMON NORMALS: regular rate, regular rhythm, S1 normal heart sound present, S2 normal heart sound present, No gallops present (Cardio), No murmurs present (Cardio), No rub (Cardio) and Peripheral pulses 2+ throughout RATE: regular rate RHYTHM: regular rhythm HEART SOUNDS: S1 normal heart sound present and S2 normal heart sound present PERIPHERAL PULSES: Peripheral pulses 2+ throughout GI: COMMON NORMALS: Normal to inspection, nondistended, normoactive bowel sounds present, Soft to palpation, non-tender, No hepatosplenomegaly present and no masses AUSCULTATION: Yes normoactive bowel sounds PALPATION: Yes Soft to palpation and Yes No hepatosplenomegaly present RECTAL EXAM: deferred Extremity: COMMON NORMALS: no clubbing, cyanosis or edema and no pedal edema Data : 06/23/22 15:23 06/23/22 15:52 Micro: Microbiology 06/23/22 16:53 Blood Culture - Preliminary Blood SPECIMEN COLLECTED 06/23/22 15:52 Blood Culture - Preliminary Blood SPECIMEN COLLECTED A&P Assessment and plan (1) Acute non-ST elevation myocardial infarction (NSTEMI): Status: Acute (2) Pneumonia: Status: Acute (3) Hypertension: Status: Acute (4) Right subclavian artery occlusion: Status: Acute Plan 76 year old female with past medical history of HTN, right subclavian artery stenosis,TIA, came in with chief complaint of acute onset of shortness of breath, started today progressively worsening , with some occasional cough, she denied any chest pain, diaphoresis, nausea vomiting, fever, sick contact. Assessment: NSTEMI Pneumonia Heart failure with preserved ejection fraction Hypertension Mild pulmonary hypertension Plan: Most recent 2D echo done in May: Showed normal LV size and systolic function, no RWMA, LVEF of 65%, grade 2 diastolic dysfunction, mild pulmonary hypertension. Follow repeat 2D echo Follow blood culture Urine Legionella antigen Bacterial antigen panel Procalcitonin Has received therapeutic Lovenox in ER, on aspirin and statin, On Rocephin and azithromycin DuoNebs Continue clonidine, propanolol CODE STATUS: Full code DVT prophylaxis: On Lovenox Attestations Medical Necessity Statement*: Patient is to be in hospital for management of NSTEMI. Anticipated length of stay greater than 2 midnights. Time Spent in Patient Care: Greater than 35 minutes (>than 50% of time spent in counselling and/or direct pt care on unit). Coding Level of Care Code Acute Client Care Representative for Carlito Quick Diagnoses Acute non-ST elevation myocardial infarction (NSTEMI) I21.4 Pneumonia J18.9 Hypertension I10 Right subclavian artery occlusion I70.8
--- NOTE | 2022-06-23 18:52 | PC.NURSE ---
Report given to KENDRA Haynes
[2022-06-23 20:07] LABS: Lactic Acid level (Lactate) 1.4 mmol/L (0.5-2.2)
[2022-06-23] MEDS: amiodarone 200 mg Tablet 400 MG PO (21:00)
--- NOTE | 2022-06-23 21:04 | ECG_ITS ---
[facility] Test Date: 2022-06-23 Pat Name: Tiesha Kaba Department: Room: 277 Gender: Female Marketing Instructor: : 1945 Requested By: Jarod Berumen Order Number: [id number] Martita MD: Adams Guzman M.D. Measurements Intervals [place] Rate: 147 P: OR: QRS: -32 QRSD: 114 T: 101 QT: 317 QTc: 496 Interpretive Statements ATRIAL FIBRILLATION WITH RAPID VENTRICULAR RESPONSE LEFT AXIS DEVIATION [QRS AXIS < -30] SEPTAL MYOCARDIAL INFARCTION , OF INDETERMINATE AGE [40+ ms Q WAVE IN V1/V2] MODERATE T-WAVE ABNORMALITY, CONSIDER LATERAL ISCHEMIA [-0.1+ mV T-WAVE IN I/aVL/V5/V6] Compared to ECG 06/23/2022 18:21:24 Myocardial infarct finding now present Sinus rhythm no longer present Intraventricular conduction delay no longer present T-wave abnormality still present Possible ischemia still present Electronically Signed On 06-24-2022 15:53:22 CDT by Adams Guzman M.D. [email or web address]
[2022-06-23] MEDS: clopidogrel 300 mg Tablet PO (22:44)
[2022-06-23] MEDS: ondansetron 2 mg/ML SDV 2 mL 4 MG IVP (23:53)
--- NOTE | 2022-06-23 23:58 | PC.NURSE ---
Patient reports not sleeping for more than a couple of hours at a time over the past several years. She has tried all types of over the counter medication as well as Rx and nothing seems to work. She stated, Prescription medications make me feel loop and sick to my stomach, so she refuses these.
[2022-06-24] VITALS (16 sets, daily range): BP systolic 118–163; BP diastolic 72–104; PULSE 109–132; RESP 16–26; TEMP 36.7–37; O2SAT 90–96
[2022-06-24] MEDS: ipratropium-albuterol 3 mL Neb INHALATION ×3 (02:34→15:23)
[2022-06-24] MEDS: LORazepam 0.5 mg Tablet PO (02:48)
--- NOTE | 2022-06-24 02:54 | PC.NURSE ---
Patient is unable to rest tonight. Appears very anxious. Also she is c/o pain between her shoulder blades with pressure around her chest and becoming more SOB. She is trying her bipap now. RT in room. Patient unable to tolerate the bipap. Informed Dr Smyth and received an order for Ativan 0.5mg PO once. Instructed patient on new medication to include uses and side effects. Patient expressed complete understanding. Medication given as ordered and documented. Will continue to monitor.
[2022-06-24 05:28] LABS: Basophils % 0.4 %; Eosinophils % 0.3 %; Hematocrit 39.7 % (37.0-47.0); Hemoglobin 12.7 g/dL (11.5-15.3); Lymphocytes # 1.8 10^3/uL (0.8-4.8); Lymphocytes % 19.1 %; Mean Corpuscular Hemoglobin 29.5 pg (28.0-34.0); Mean Corpuscular Volume 92.1 fl (81-99); Mean Platelet Volume 9.5 fL (7.4-10.4); Monocytes # 0.7 10^3/uL (0.2-0.9); Monocytes % 6.8 %; Neutrophils # 7.04 10^3/uL (1.8-7.7); Nucleated Red Blood Cells % 0 %; Platelet Count 334 10^3/cmm (130-400); Red Blood Count 4.31 10^6/uL (4.1-5.3); Red Cell Distribution Width 12.2 % (12.1-15.1); White Blood Count 9.7 10^3/uL (4.0-10.0)
[2022-06-24 05:41] LABS: INR 1.03 (0.8-1.2)
[2022-06-24 05:48] LABS: Lactic Sepsis W/Reflex 1.5 mmol/L (0.5-2.2)
[2022-06-24 05:55] LABS: Procalcitonin 0.83 ng/mL (0-0.5); Thyroid Stimulating Hormone 1.13 uIU/mL (0.27-4.20)
[2022-06-24 06:06] LABS: Alanine Aminotransferase 10 U/L (0-33); Albumin Level 3.5 g/dL (3.5-5.2); Alkaline Phosphatase 69 U/L (35-105); Anion Gap 15.2 (5-19); Aspartate Amino Transferase 15 U/L (0-32); Blood Urea Nitrogen 12 mg/dL (8-23); Calcium 8.8 mg/dL (8.5-10.5); Carbon Dioxide 26 mmol/L (22-29); Chloride 102 mmol/L (98-107); Chol HDL Ratio 6.03 mg/dL (0.0-4.40); Cholesterol 199 mg/dL (0-200); Globulin 2.7 g/dL (1.3-4.6); Glucose 134 mg/dL (65-115); HDL Cholesterol 33 mg/dL (60-100); LDL Cholesterol Calculated 138 mg/dL (50-129); LDL HDL Ratio 4.18 RATIO (0.00-3.22); Magnesium 1.8 mg/dL (1.7-2.3); Osmolality Calculated 290 mOsm/kg (285-295); Potassium 4.2 mmol/L (3.5-5.1); Sodium 139 mmol/L (136-145); Total Protein 6.2 g/dL (6.6-8.7); Triglycerides 141 mg/dL (0-150)
[2022-06-24] MEDS: ondansetron 2 mg/ML SDV 2 mL 4 MG IVP (08:32)
[2022-06-24] MEDS: aspirin 81 mg EC Tablet PO (08:33)
[2022-06-24] MEDS: metoprolol tartrate 25 mg Tablet PO ×3 (08:33→21:52)
[2022-06-24] MEDS: amiodarone 200 mg Tablet 400 MG PO ×2 (08:37→18:38)
[2022-06-24] MEDS: FUROsemide 10 mg/mL SDV 2mL 20 MG IVP ×2 (08:37→16:23)
[2022-06-24] MEDS: atorvastatin 40 mg Tablet PO (08:38)
[2022-06-24] MEDS: azithromycin 500 MG in sodium chloride 0.9% 250 ML 250 MG IV (09:05)
[2022-06-24] MEDS: enoxaparin 80 mg/0.8 mL Syringe 70 MG SUBCUT ×2 (10:18→21:52)
[2022-06-24] MEDS: benzonatate 100 mg Capsule PO (11:52)
[2022-06-24] MEDS: acetaminophen 325 mg Tablet 650 MG PO (11:52)
--- NOTE | 2022-06-24 15:02 | P.PN_ITS ---
Subjective Subjective: The patient is doing okay. She has no chest pain or chest tightness. The shortness of breath is improving. Telemetry shows atrial fibrillation with a rapid ventricular rate. Medications: Medication Review Details: Current Medications Acetaminophen (Acetaminophen 325 Mg Tablet) 650 mg PO Q6H PRN PRN Reason: Mild/Mod Pain Or Temp >/= 101 Last Admin: 06/24/22 11:52 Dose: 650 mg Albuterol/Ipratropium (Ipratropium-Albuterol 3 Ml Neb) 3 ml INHALATION Q6H.RESP [facility] Last Admin: 06/24/22 08:26 Dose: 3 ml Amiodarone HCl (Amiodarone 200 Mg Tablet) 400 mg PO BID [facility] Last Admin: 06/24/22 08:37 Dose: 400 mg Aspirin (Aspirin 81 Mg Ec Tablet) 81 mg PO DAILY [facility] Last Admin: 06/24/22 08:33 Dose: 81 mg Atorvastatin Calcium (Atorvastatin 40 Mg Tablet) 40 mg PO DAILY [facility] Last Admin: 06/24/22 08:38 Dose: 40 mg Benzonatate (Benzonatate 100 Mg Capsule) 100 mg PO TID PRN PRN Reason: COUGH Last Admin: 06/24/22 11:52 Dose: 100 mg Bisacodyl (Bisacodyl 5 Mg Tablet) 10 mg PO DAILY PRN; Protocol PRN Reason: Constipation (see protocol) Clonidine HCl (Clonidine 0.1 Mg Tablet) 0.05 mg PO TID [facility] Last Admin: 06/24/22 08:24 Dose: Not Given Enoxaparin Sodium (Enoxaparin 80 Mg/0.8 Ml Syringe) 70 mg SUBCUT Q12H [facility] Last Admin: 06/24/22 10:18 Dose: 70 mg Furosemide (Furosemide 10 Mg/Ml Sdv 4ml) 40 mg IVP Q24H [facility] Furosemide (Furosemide 10 Mg/Ml Sdv 2ml) 20 mg IVP ONCE ONE Stop: 06/24/22 16:01 Ceftriaxone Sodium 1,000 mg/ (Sodium Chloride) 50 mls @ 100 mls/hr IV Q24H [facility]; Protocol Doxycycline Hyclate 100 mg/ (Sodium Chloride) 100 mls @ 100 mls/hr IV Q12H [facility]; Protocol Metoprolol Tartrate (Metoprolol Tartrate 25 Mg Tablet) 25 mg PO BID@0900,2100 [facility] Non-Formulary Medication (Usana Antioxidant) 1 tab PO DAILY [facility] Last Admin: 06/24/22 07:49 Dose: Not Given Non-Formulary Medication (Usana Eye Vitamins) 1 tab PO DAILY [facility] Last Admin: 06/24/22 07:50 Dose: Not Given Non-Formulary Medication (Usana Multi-Vitamin Womens) 1 tab PO DAILY [facility] Last Admin: 06/24/22 09:28 Dose: Not Given Ondansetron HCl (Ondansetron 2 Mg/Ml Sdv 2 Ml) 4 mg IVP Q8H PRN PRN Reason: vomiting, or N/V if npo Last Admin: 06/24/22 08:32 Dose: 4 mg Vitals/I&O/Wt Last Vital Signs Temp 98.6 F 06/24/22 11:19 Pulse 118 H 06/24/22 11:19 Resp 17 06/24/22 11:19 BP 118/87 06/24/22 11:19 Pulse Ox 91 06/24/22 11:19 O2 Del Method 06/24/22 11:19 O2 Flow Rate 2 06/24/22 11:19 FiO2 35 06/24/22 02:39 06/24/22 06/24/22 06/24/22 06:59 14:59 22:59 Intake Total 810 / 810 Output Total 300 / 300 200 / 200 Balance -300 / -150 610 / 610 Weight last 48 hrs Weight 160 lb Physical Exam Narrative: GENERAL: The patient is alert and oriented times three. Currently on a BiPAP HEENT: No significant pallor, icterus or lymphadenopathy.Oral cavity: There are no mucous membrane lesions. NECK: Trachea appears to be central. No masses noted. No JVD or thyromegaly momo reciated. RESPIRATORY: Breath sounds heard bilaterally with a scattered coarse crackles. Occasional expiratory wheezing. BREASTS: Deferred. HEART: The first heart sound is variable. Second heart sound is normal. Short systolic murmur at the base of the heart. No diastolic murmurs.. No pericard ial rub ABDOMEN: No vessel pulsations or distention. No tenderness. No organomegaly appreciated. Bowel sounds are normally heard. : Deferred. RECTAL: Deferred. LYMPHATIC: No lymphadenopathy noted in the neck. EXTREMITIES: No edema or cyanosis. No clubbing. MUSCULOSKELETAL: No acute joint deformities or swelling SKIN: There are no significant rashes or ecchymosis NEUROPSYCHIATRIC: The patient is alert and oriented x3. Appears to be in a good mood. No tremors or rigidity noted. Data : 06/24/22 05:16 06/24/22 05:16 Other Labs: Laboratory Last Values WBC 9.7 10^3/uL (4.0-10.0) 06/24/22 05:16 RBC 4.31 10^6/uL (4.1-5.3) 06/24/22 05:16 Hgb 12.7 g/dL (11.5-15.3) 06/24/22 05:16 Hct 39.7 % (37.0-47.0) 06/24/22 05:16 MCV 92.1 fl (81-99) 06/24/22 05:16 MCH 29.5 pg (28.0-34.0) 06/24/22 05:16 MCHC 32.0 g/dL (30.0-36.0) 06/24/22 05:16 RDW 12.2 % (12.1-15.1) 06/24/22 05:16 Plt Count 334 10^3/cmm (130-400) 06/24/22 05:16 MPV 9.5 fL (7.4-10.4) 06/24/22 05:16 Neut % (Auto) 73.0 % 06/24/22 05:16 Lymph % (Auto) 19.1 % 06/24/22 05:16 Hayes % (Auto) 6.8 % 06/24/22 05:16 Eos % (Auto) 0.3 % 06/24/22 05:16 Baso % (Auto) 0.4 % 06/24/22 05:16 Neut # (Auto) 7.04 10^3/uL (1.8-7.7) 06/24/22 05:16 Lymph # (Auto) 1.8 10^3/uL (0.8-4.8) 06/24/22 05:16 Hayes # (Auto) 0.7 10^3/uL (0.2-0.9) 06/24/22 05:16 Eos # (Auto) 0.0 10^3/uL (0.0-0.8) 06/24/22 05:16 Baso # (Auto) 0.0 10^3/uL (0.0-0.1) 06/24/22 05:16 Nucleated RBC % (auto) 0 % 06/24/22 05:16 Nucleated RBCs # 0.0 /100WBC 06/24/22 05:16 PT 13.80 SECONDS (12.1-14.9) 06/24/22 05:16 INR 1.03 (0.8-1.2) 06/24/22 05:16 Specimen Type Arterial 06/23/22 15:58 Sample Site Radial, left 06/23/22 15:58 ABG pH 7.39 (7.35-7.45) 06/23/22 15:58 ABG pCO2 40.4 mmHg (35-45) 06/23/22 15:58 ABG pO2 110.0 mmHg (80.0-100.0) H 06/23/22 15:58 ABG HCO3 24.6 mmol/L (22-26) 06/23/22 15:58 ABG Base Excess -0.3 mmol/L (-2.0-2.0) 06/23/22 15:58 Clement Test Pos 06/23/22 15:58 Hematocrit 43.0 % (37-47) 06/23/22 15:58 Hgb O2 Saturation 96.9 % (95-100) 06/23/22 15:58 Carboxyhemoglobin 1.0 %THgb (0.4-20.1) 06/23/22 15:58 Methemoglobin 0.9 % (0.4-1.5) 06/23/22 15:58 Total Hemoglobin 14.0 g/dL (12-16) 06/23/22 15:58 O2 Delivery Device Bipap 06/23/22 15:58 FiO2 40.0 % 06/23/22 15:58 Band Sawyer ID Cak 06/23/22 15:58 Sodium 139 mmol/L (136-145) 06/24/22 05:16 Potassium 4.2 mmol/L (3.5-5.1) 06/24/22 05:16 Chloride 102 mmol/L (98-107) 06/24/22 05:16 Carbon Dioxide 26 mmol/L (22-29) 06/24/22 05:16 Anion Gap 15.2 (5-19) 06/24/22 05:16 BUN 12 mg/dL (8-23) 06/24/22 05:16 Creatinine 0.6 mg/dL (0.5-0.9) 06/24/22 05:16 GFR Calculation Not Reportable 06/24/22 05:16 Glucose 134 mg/dL (65-115) H 06/24/22 05:16 Calculated Osmolality 290 mOsm/kg (285-295) 06/24/22 05:16 Lactic Acid 1.5 mmol/L (0.5-2.2) 06/24/22 05:16 Lactic Acid (Sepsis) 1.4 mmol/L (0.5-2.2) 06/23/22 19:14 Calcium 8.8 mg/dL (8.5-10.5) 06/24/22 05:16 Magnesium 1.8 mg/dL (1.7-2.3) 06/24/22 05:16 Total Bilirubin 1.0 mg/dL (0.15-1.2) 06/24/22 05:16 AST 15 U/L (0-32) 06/24/22 05:16 ALT 10 U/L (0-33) 06/24/22 05:16 Alkaline Phosphatase 69 U/L (35-105) 06/24/22 05:16 Troponin T Baseline 65 ng/L (0-10) H 06/23/22 15:23 Troponin T 120 Minute 129.1 ng/L (0-10) H 06/23/22 16:53 Delta Troponin T 64.1 ABS# (0-10) H* 06/23/22 16:53 Troponin T Hi Sens 6Hr 160.0 ng/L (0-10) H 06/23/22 21:05 Troponin T Hi Sens 6Hr Delta 95.0 ng/L (0-12) H* 06/23/22 21:05 NT-Pro-B Natriuret Pep 1263 pg/mL (0-450) H 06/23/22 15:52 Total Protein 6.2 g/dL (6.6-8.7) L 06/24/22 05:16 Albumin 3.5 g/dL (3.5-5.2) 06/24/22 05:16 Globulin 2.7 g/dL (1.3-4.6) 06/24/22 05:16 Triglycerides 141 mg/dL (0-150) 06/24/22 05:16 Cholesterol 199 mg/dL (0-200) 06/24/22 05:16 LDL Cholesterol, Calc 138 mg/dL (50-129) H 06/24/22 05:16 HDL Cholesterol 33 mg/dL (60-100) L 06/24/22 05:16 LDL/HDL Ratio 4.18 RATIO (0.00-3.22) H 06/24/22 05:16 Cholesterol/HDL Ratio 6.03 mg/dL (0.0-4.40) H 06/24/22 05:16 Procalcitonin 0.83 ng/mL (0-0.5) H 06/24/22 05:16 TSH 1.13 uIU/mL (0.27-4.20) 06/24/22 05:16 SARS-CoV-2 Ag (Rapid) Negative (Negative) 06/23/22 15:35 Micro: Microbiology 06/24/22 02:30 Legionella Urinary Antigen - Final Urine,Voided Bacterial Antigens - Final 06/23/22 16:53 Blood Culture - Preliminary Blood SPECIMEN COLLECTED 06/23/22 15:52 Blood Culture - Preliminary Blood SPECIMEN COLLECTED A&P Assessment and plan (1) Acute pulmonary edema with congestive heart failure: The heart failure seems to be getting compensated. Hemodynamically she is stable. Her oxygenation is appropriate. Status: Acute (2) Acute non-ST elevation myocardial infarction (NSTEMI): The troponin delta at 6 hours is 95. Patient seems to be tolerating medication so far well. We will continue the Lovenox, Plavix and other medications. Status: Acute (3) Atrial fibrillation with rapid ventricular response: Patient seems to be in intermittent atrial fibrillation. Because of LV dysfunction, I may start her on amiodarone 400 mg p.o. now at twice daily. For better control of the heart rate, also may start her metoprolol 50 mg p.o. twice daily. Status: Acute (4) Hypertension: Need to be closely monitored. Currently the blood pressure is currently under control. Status: Acute (5) Right subclavian artery occlusion: She seems to be fairly asymptomatic at this time. This may need to be further evaluated with an angiogram Status: Acute (6) Community acquired pneumonia: Management as per the primary service Status: Acute Plan In view of the patient's new onset of atrial fibrillation and with the congestive heart failure and elevated troponin T, she may benefit from a cardiac catheterization to further evaluate her coronary status and decide on further management. Once the heart rate is under control and the heart failure is fairly compensated, we may proceed with the angiogram. Patient needs to be closely monitored on telemetry. Attestations Medical Necessity Statement*: Patient requires continued hospital stay for close monitoring and further management Coding Level of Care Code Acute Subway Car Repairer for g Fwd History Detailed Exam Detailed Medical Decision Making Moderate Complexity Diagnoses Acute pulmonary edema with congestive heart failure I50.1 Acute non-ST elevation myocardial infarction (NSTEMI) I21.4 Atrial fibrillation with rapid ventricular response I48.91 Hypertension I10 Right subclavian artery occlusion I70.8 Community acquired pneumonia J18.9
--- NOTE | 2022-06-24 15:22 | P.PN_ITS ---
Subjective Subjective: Patient was seen and examined this morning, she was complaining of shortness of breath, dry cough, denied any chest pain. Medications: Medication Review Details: Generic Name Dose Route Start Last Admin Trade Name Gabrieleq PRN Reason Stop Dose Admin Acetaminophen 650 mg 06/23/22 18:21 06/24/22 11:52 Acetaminophen 32 5 Mg Tablet PO 650 mg Q6H PRN Administration Mild/Mod Pain Or Temp >/= 101 Albuterol/Ipratrop ium 3 ml 06/23/22 20:00 06/24/22 08:26 Ipratropium-Albu terol 3 Ml Neb INHALATION 3 ml Q6H.RESP [facility] Administration Amiodarone HCl 400 mg 06/23/22 20:50 06/24/22 08:37 Amiodarone 200 M g Tablet PO 400 mg BID [facility] Administration Aspirin 81 mg 06/24/22 09:00 06/24/22 08:33 Aspirin 81 Mg Ec Tablet PO 81 mg DAILY [facility] Administration Atorvastatin Calci um 40 mg 06/24/22 09:00 06/24/22 08:38 Atorvastatin 40 Mg Tablet PO 40 mg DAILY [facility] Administration Benzonatate 100 mg 06/24/22 08:01 06/24/22 11:52 Benzonatate 100 Mg Capsule PO 100 mg TID PRN Administration COUGH Clonidine HCl 0.05 mg 06/23/22 21:00 06/24/22 15:15 Clonidine 0.1 Mg Tablet PO Not Given TID [facility] Enoxaparin Sodium 70 mg 06/24/22 09:00 06/24/22 10:18 Enoxaparin 80 Mg /0.8 Ml Syringe SUBCUT 70 mg Q12H [facility] Administration Non-Formulary Medi cation 1 tab 06/24/22 09:00 06/24/22 07:49 Usana Antioxidan t PO Not Given DAILY [facility] Non-Formulary Medi cation 1 tab 06/24/22 09:00 06/24/22 07:50 Usana Eye Vitami ns PO Not Given DAILY [facility] Non-Formulary Medi cation 1 tab 06/24/22 09:00 06/24/22 09:28 Usana Multi-Meena min Womens PO Not Given DAILY [facility] Ondansetron HCl 4 mg 06/23/22 18:21 06/24/22 08:32 Ondansetron 2 Mg /Ml Sdv 2 Ml IVP 4 mg Q8H PRN Administration vomiting, or N/V if npo Vitals/I&O/Wt Last Vital Signs Temp 98.3 F 06/24/22 15:14 Pulse 115 H 06/24/22 15:14 Resp 16 06/24/22 15:14 BP 123/88 06/24/22 15:14 Pulse Ox 93 06/24/22 15:14 O2 Del Method 06/24/22 15:14 O2 Flow Rate 2 06/24/22 15:14 FiO2 35 06/24/22 02:39 06/24/22 06/24/22 06/24/22 06:59 14:59 22:59 Intake Total 810 / 810 Output Total 300 / 300 200 / 200 Balance -300 / -150 610 / 610 Weight last 48 hrs Weight 72.575 kg Physical Exam Const: COMMON NORMALS: patient oriented x3 Resp: COMMON NORMALS: No use of accessory muscles and clear to auscultation bilaterally AUSCULTATION: clear to auscultation bilaterally OTHER: Bilateral crackles present in both lung field Cardio: COMMON NORMALS: regular rate, regular rhythm, S1 normal heart sound present, S2 normal heart sound present, No gallops present (Cardio), No murmurs present (Cardio), No rub (Cardio) and Peripheral pulses 2+ throughout RATE: regular rate RHYTHM: regular rhythm HEART SOUNDS: S1 normal heart sound present and S2 normal heart sound present PERIPHERAL PULSES: Peripheral pulses 2+ throughout GI: COMMON NORMALS: Normal to inspection, nondistended, normoactive bowel sounds present, Soft to palpation, non-tender, No hepatosplenomegaly present and no masses AUSCULTATION: Yes normoactive bowel sounds PALPATION: Yes Soft to palpation and Yes No hepatosplenomegaly present RECTAL EXAM: deferred Extremity: COMMON NORMALS: no clubbing, cyanosis or edema and no pedal edema Neuro: COMMON NORMALS: patient oriented x3 Data : 06/24/22 05:16 06/24/22 05:16 Micro: Microbiology 06/24/22 02:30 Legionella Urinary Antigen - Final Urine,Voided Bacterial Antigens - Final 06/23/22 16:53 Blood Culture - Preliminary Blood SPECIMEN COLLECTED 06/23/22 15:52 Blood Culture - Preliminary Blood SPECIMEN COLLECTED A&P Assessment and plan (1) Acute non-ST elevation myocardial infarction (NSTEMI): Status: Acute (2) Pneumonia: Status: Acute (3) Hypertension: Status: Acute (4) Right subclavian artery occlusion: Status: Acute Plan 76 year old female with past medical history of HTN, right subclavian artery stenosis,TIA, came in with chief complaint of acute onset of shortness of breath, started today progressively worsening , with some occasional cough, she denied any chest pain, diaphoresis, nausea vomiting, fever, sick contact. Assessment: NSTEMI Pneumonia Newly diagnosed heart failure with reduced ejection fraction as well as HFpEF Newly diagnosed A. fib with RVR Hypertension Mild pulmonary hypertension Plan: Most recent 2D echo done in May: Showed normal LV size and systolic function, no RWMA, LVEF of 65%, grade 2 diastolic dysfunction, mild pulmonary hypertension. Repeat 2D echo: Moderate concentric left ventricular hypertrophy.? LV ejection fraction around 45%(visual).? Diffuse hypokinesis of the left ventricle.?Grade III/IV diastolic dysfunction. EF interpretation can be difficult in the presence of A. fib. Blood culture:NTD Urine Legionella antigen: Negative Bacterial antigen panel: Negative Procalcitonin: 0.83 TSH : 1.13 Has received therapeutic Lovenox in ER, on aspirin and statin, beta-hermes Continue amiodarone 400 mg p.o. twice daily On Rocephin and doxycycline Monitor for QTc interval. DuoNebs Continue clonidine CODE STATUS: Full code DVT prophylaxis: On Lovenox Attestations Medical Necessity Statement*: Patient is still in hospital for management of NSTEMI. Coding Level of Care Code Acute Chief Librarian Circulation Department for Carlito Quick Diagnoses Acute non-ST elevation myocardial infarction (NSTEMI) I21.4 Pneumonia J18.9 Hypertension I10 Right subclavian artery occlusion I70.8
[2022-06-24] MEDS: cefTRIAXone 1,000 MG in sodium chloride 0.9% (plus) 50 ML 100 MG IV (16:22)
[2022-06-24] MEDS: clopidogrel 75 mg Tablet PO (16:23)
[2022-06-25] VITALS (12 sets, daily range): BP systolic 110–160; BP diastolic 62–102; PULSE 99–131; RESP 11–24; TEMP 36.8–36.9; O2SAT 87–97
[2022-06-25] MEDS: acetaminophen 325 mg Tablet 650 MG PO (03:34)
[2022-06-25] MEDS: hyDRALAzine 20 mg/mL INJ 1 mL IVP (04:01)
[2022-06-25] MEDS: ipratropium-albuterol 3 mL Neb INHALATION (08:20)
[2022-06-25] MEDS: doxycycline 100 MG in sodium chloride 0.9% (plus) 100 ML IV ×2 (09:05→22:25)
[2022-06-25] MEDS: FUROsemide 10 mg/mL SDV 4mL 40 MG IVP (09:06)
[2022-06-25] MEDS: enoxaparin 80 mg/0.8 mL Syringe 70 MG SUBCUT ×2 (09:06→22:25)
[2022-06-25] MEDS: amiodarone 200 mg Tablet 400 MG PO ×2 (09:07→17:31)
[2022-06-25] MEDS: aspirin 81 mg EC Tablet PO (09:07)
[2022-06-25] MEDS: cloNIDine 0.1 mg Tablet 0.05 MG PO (09:07)
[2022-06-25] MEDS: clopidogrel 75 mg Tablet PO (09:07)
[2022-06-25] MEDS: metoprolol tartrate 25 mg Tablet PO (10:16)
[2022-06-25] MEDS: atorvastatin 40 mg Tablet PO (10:19)
--- NOTE | 2022-06-25 10:51 | PM.PN ---
Subjective Subjective: Feels better. SOB has improved Medications: Reviewed: Yes Vitals/I&O/Wt Last Vital Signs Temp 98.3 F 06/25/22 08:00 Pulse 107 H 06/25/22 08:00 Resp 14 06/25/22 08:00 BP 124/90 06/25/22 09:07 Pulse Ox 93 06/25/22 04:18 O2 Del Method 06/25/22 08:00 O2 Flow Rate 2 06/25/22 08:00 FiO2 35 06/25/22 04:00 06/24/22 06/25/22 06/25/22 22:59 06:59 14:59 Intake Total 220 / 1030 240 / 1270 100 / 100 Output Total 1200 / 1400 300 / 1700 Balance -980 / -370 -60 / -430 100 / 100 Weight last 48 hrs Weight 160 lb Physical Exam Narrative: GENERAL: Averagely built and averagely nourished in no acute distress HEENT: Extraocular movement intact. No pallor or icterus. NECK: central trachea, No JVD, No carotid bruit. CARDIOVASCULAR SYSTEM: S1-S2 irregular. No murmur rubs or gallops. RESPIRATORY SYSTEM: Chest clear to auscultation. No wheezes rhonchi or rubs heard. No use of accessory muscles. ABDOMEN: Soft, nontender and nondistended. Normal bowel sounds present. EXTREMITIES: No cyanosis or edema. No signs of chronic venous insufficiency. WIRE STRIPPER: Patient is alert oriented ?3. No focal neurological deficits. Data : 06/24/22 05:16 06/24/22 05:16 Micro: Microbiology 06/23/22 16:53 Blood Culture - Preliminary Blood NEGATIVE TO DATE 06/23/22 15:52 Blood Culture - Preliminary Blood NEGATIVE TO DATE 06/24/22 02:30 Legionella Urinary Antigen - Final Urine,Voided Bacterial Antigens - Final Other data: TTE (06/23/22) CONCLUSIONS ?Moderate concentric left ventricular hypertrophy.? LV ejection ?fraction around 45%(visual).? ?Diffuse hypokinesis of the left ventricle.? (Patient was found ?to be in atrial fibrillation with rapid ventricular rate during ?the study.? Ejection fraction estimation could be misleading ?because of the arrhythmia.) ?Grade III/IV diastolic dysfunction (restrictive filling ?pattern), severely elevated filling pressures. Severely ?increased left ventricular mass. ?Mildly increased left atrial size. ?Thickened mitral valve. Moderate mitral annular calcification. ?Mild tricuspid valve regurgitation.? Mild pulmonary hypertension ?with an estimated pulmonary artery peak systolic pressure 45 ?mmHg. ?Thickened aortic valve. ?Mild pulmonary valve regurgitation. ?Compared to the study from 05/19/2022, there is a decline in the ?LV ejection fraction, possibly from the arrhythmia Neck CTA (05/19/22) IMPRESSION: ? 1.? No significant carotid artery stenosis. Calcification at the bifurcations with stenosis less than 50%. No significant progression of disease since the prior examination from 2012. 2.? Absent very small caliber RIGHT vertebral artery intermittently visualized. Similar to the prior study. 3.? Dense calcified plaque at the origin of the RIGHT subclavian artery. Suspect there is probably significant stenosis. Recommend dedicated ultrasound evaluation of the proximal RIGHT subclavian artery. A&P Assessment and plan (1) Acute pulmonary edema with congestive heart failure: on lasix 40 mg IV daily UO 1500 ml, -580 ml; LOS -480 ml feels better Status: Acute (2) Acute non-ST elevation myocardial infarction (NSTEMI): EKG showed sinus rhythm, borderline LAD. Moderate IVCD. ST and T wave abnormality, consider lateral ischemia Baseline troponin T 65--> 129--> 160 We will continue the ASA, lipitor, Lovenox, Plavix and metoprolol -Will plan for [facility] possibly tomorrow Risks and benefits were discussed with the patients. Possible complications including risk of heart attack stroke and , coronary perforation, arrhythmia, cardiac tamponade in urgent CABG were discussed with the patient as well. Status: Acute (3) Atrial fibrillation with rapid ventricular response: continue amiodarone 400 mg p.o. twice daily. -increase metoprolol to 50 mg p.o. twice daily. -on therapeutic lovenox Status: Acute (4) Hypertension: Med changes noted. Status: Acute (5) Right subclavian artery occlusion: She seems to be fairly asymptomatic at this time. will plan to further evaluate it with angiogram Status: Acute (6) Community acquired pneumonia: Management as per the primary service Status: Acute Attestations Medical Necessity Statement*: Patient is still in hospital for management of NSTEMI, A. fib with RVR. Coding Level of Care Code Acute Cyber Reverse Engineer for Chg Fwd Diagnoses Acute pulmonary edema with congestive heart failure I50.1 Acute non-ST elevation myocardial infarction (NSTEMI) I21.4 Atrial fibrillation with rapid ventricular response I48.91 Hypertension I10 Right subclavian artery occlusion I70.8 Community acquired pneumonia J18.9
[2022-06-25] MEDS: amlodipine 5 mg Tablet PO (14:21)
[2022-06-25] MEDS: levalbuterol 1.25 mg/3 mL Neb INHALATION ×2 (14:29→20:07)
--- NOTE | 2022-06-25 17:20 | PM.PN ---
Subjective Subjective: Patient was seen and examined this morning, denied any chest pain , SOB has improved. Will increase the dose of metoprolol for better H/R Control. Medications: Medication Review Details: Generic Name Dose Route Start Last Admin Trade Name Freq PRN Reason Stop Dose Admin Acetaminophen 650 mg 06/23/22 18:21 06/25/22 03:34 Acetaminophen 32 5 Mg Tablet PO 650 mg Q6H PRN Administration Mild/Mod Pain Or Temp >/= 101 Amiodarone HCl 400 mg 06/23/22 20:50 06/25/22 09:07 Amiodarone 200 M g Tablet PO 400 mg BID PIETER Administration Aspirin 81 mg 06/24/22 09:00 06/25/22 09:07 Aspirin 81 Mg Ec Tablet PO 81 mg DAILY PIETER Administration Atorvastatin Calci um 40 mg 06/24/22 09:00 06/25/22 10:19 Atorvastatin 40 Mg Tablet PO 40 mg DAILY PIETER Administration Benzonatate 100 mg 06/24/22 08:01 06/24/22 11:52 Benzonatate 100 Mg Capsule PO 100 mg TID PRN Administration COUGH Clopidogrel Bisulf ate 75 mg 06/24/22 15:10 06/25/22 09:07 Clopidogrel 75 M g Tablet PO 75 mg DAILY PIETER Administration Enoxaparin Sodium 70 mg 06/24/22 09:00 06/25/22 09:06 Enoxaparin 80 Mg /0.8 Ml Syringe SUBCUT 70 mg Q12H PIETER Administration Furosemide 40 mg 06/25/22 07:00 06/25/22 09:06 Furosemide 10 Mg /Ml Sdv 4ml IVP 40 mg Q24H PIETER Administration Ceftriaxone Sodium 1,000 mg/ 50 mls @ 100 mls/ hr 06/24/22 17:00 06/24/22 17:02 Sodium Chloride IV Infused Q24H PIETER Infusion Protocol Doxycycline Hyclat e 100 mg/ 100 mls @ 100 mls /hr 06/25/22 08:00 06/25/22 10:16 Sodium Chloride IV Infused Q12H PIETER Infusion Protocol Levalbuterol HCl 1.25 mg 06/25/22 14:00 06/25/22 14:29 Levalbuterol 1.2 5 Mg/3 Ml Neb INHALATION 1.25 mg Q6H.RESP PIETER Administration Metoprolol Tartrat e 25 mg 06/25/22 10:15 06/25/22 10:16 Metoprolol Tartr ate 25 Mg Tablet PO 25 mg ONCE PIETER Administration Non-Formulary Medi cation 1 tab 06/24/22 09:00 06/25/22 10:14 Usana Antioxidan t PO Not Given DAILY PIETER Non-Formulary Medi cation 1 tab 06/24/22 09:00 06/25/22 10:15 Usana Eye Vitami ns PO Not Given DAILY PIETER Non-Formulary Medi cation 1 tab 06/24/22 09:00 06/25/22 10:15 Usana Multi-Meena min Womens PO Not Given DAILY PIETER Ondansetron HCl 4 mg 06/23/22 18:21 06/24/22 08:32 Ondansetron 2 Mg /Ml Sdv 2 Ml IVP 4 mg Q8H PRN Administration vomiting, or N/V if npo Vitals/I&O/Wt Last Vital Signs Temp 98.4 F 06/25/22 12:00 Pulse 102 H 06/25/22 14:42 Resp 16 06/25/22 14:33 BP 110/62 06/25/22 12:00 Pulse Ox 97 06/25/22 14:33 O2 Del Method 06/25/22 14:33 O2 Flow Rate 2 06/25/22 14:33 FiO2 35 06/25/22 08:00 06/25/22 06/25/22 06/25/22 06:59 14:59 22:59 Intake Total 240 / 1270 340 / 340 Output Total 300 / 1700 200 / 200 Balance -60 / -430 140 / 140 Physical Exam Const: COMMON NORMALS: patient oriented x3 Resp: COMMON NORMALS: No use of accessory muscles and clear to auscultation bilaterally AUSCULTATION: clear to auscultation bilaterally OTHER: Minimal B/L basal Crackles present in both lungs grayson Cardio: COMMON NORMALS: regular rate, regular rhythm, S1 normal heart sound present, S2 normal heart sound present, No gallops present (Cardio), No murmurs present (Cardio), No rub (Cardio) and Peripheral pulses 2+ throughout RATE: regular rate RHYTHM: regular rhythm HEART SOUNDS: S1 normal heart sound present and S2 normal heart sound present PERIPHERAL PULSES: Peripheral pulses 2+ throughout GI: COMMON NORMALS: Normal to inspection, nondistended, normoactive bowel sounds present, Soft to palpation, non-tender, No hepatosplenomegaly present and no masses AUSCULTATION: Yes normoactive bowel sounds PALPATION: Yes Soft to palpation and Yes No hepatosplenomegaly present RECTAL EXAM: deferred Extremity: COMMON NORMALS: no clubbing, cyanosis or edema and no pedal edema Neuro: COMMON NORMALS: patient oriented x3 Data : 06/24/22 05:16 06/24/22 05:16 Micro: Microbiology 06/23/22 16:53 Blood Culture - Preliminary Blood NEGATIVE TO DATE 06/23/22 15:52 Blood Culture - Preliminary Blood NEGATIVE TO DATE A&P Assessment and plan (1) Acute non-ST elevation myocardial infarction (NSTEMI): Status: Acute (2) Pneumonia: Status: Acute (3) Hypertension: Status: Acute (4) Right subclavian artery occlusion: Status: Acute Plan 76 year old female with past medical history of HTN, right subclavian artery stenosis,TIA, came in with chief complaint of acute onset of shortness of breath, started today progressively worsening , with some occasional cough, she denied any chest pain, diaphoresis, nausea vomiting, fever, sick contact. Assessment: NSTEMI Pneumonia Newly diagnosed heart failure with reduced ejection fraction as well as HFpEF Newly diagnosed A. fib with RVR Hypertension Mild pulmonary hypertension Plan: Most recent 2D echo done in May: Showed normal LV size and systolic function, no RWMA, LVEF of 65%, grade 2 diastolic dysfunction, mild pulmonary hypertension. Repeat 2D echo: Moderate concentric left ventricular hypertrophy.? LV ejection fraction around 45%(visual).? Diffuse hypokinesis of the left ventricle.?Grade III/IV diastolic dysfunction. EF interpretation can be difficult in the presence of A. fib. Blood culture:NTD Urine Legionella antigen: Negative Bacterial antigen panel: Negative Procalcitonin: 0.83 TSH : 1.13 Has received therapeutic Lovenox in ER, on aspirin and statin, beta-hermes Continue amiodarone 400 mg p.o. twice daily On Rocephin and doxycycline Monitor for QTc interval Cardiology plans to do CAG +- PCI . DuoNebs CODE STATUS: Full code DVT prophylaxis: On Lovenox Attestations Medical Necessity Statement*: Patient needs to be in hospital for the management of NSTEMI. Coding Level of Care Code Acute Community Outreach Manager for [facility] Abdelrahman Diagnoses Acute non-ST elevation myocardial infarction (NSTEMI) I21.4 Pneumonia J18.9 Hypertension I10 Right subclavian artery occlusion I70.8
[2022-06-25] MEDS: cefTRIAXone 1,000 MG in sodium chloride 0.9% (plus) 50 ML 100 MG IV (17:31)
[2022-06-25] MEDS: metoprolol tartrate 50 mg Tablet 75 MG PO (22:24)
[2022-06-26] VITALS (45 sets, daily range): BP systolic 101–164; BP diastolic 64–92; PULSE 49–100; RESP 12–29; TEMP 36.6–37.1; O2SAT 87–97
[2022-06-26] MEDS: FUROsemide 10 mg/mL SDV 4mL 40 MG IVP (05:47)
[2022-06-26 06:21] LABS: Basophils % 0.6 %; Eosinophils # 0.2 10^3/uL (0.0-0.8); Hematocrit 40.9 % (37.0-47.0); Hemoglobin 13.1 g/dL (11.5-15.3); Lymphocytes # 1.6 10^3/uL (0.8-4.8); Lymphocytes % 30.9 %; Mean Corpuscular Hemoglobin 29.3 pg (28.0-34.0); Mean Corpuscular Volume 91.5 fl (81-99); Mean Platelet Volume 10.1 fL (7.4-10.4); Monocytes # 0.6 10^3/uL (0.2-0.9); Monocytes % 10.7 %; Neutrophils % 54.6 %; Nucleated Red Blood Cells % 0 %; Platelet Count 348 10^3/cmm (130-400); Red Blood Count 4.47 10^6/uL (4.1-5.3); Red Cell Distribution Width 12.5 % (12.1-15.1); White Blood Count 5.3 10^3/uL (4.0-10.0)
[2022-06-26] MEDS: sodium chloride 0.9% 1,000 ML 50 ML IV (06:36)
[2022-06-26 06:40] LABS: Alanine Aminotransferase 11 U/L (0-33); Albumin Level 3.4 g/dL (3.5-5.2); Alkaline Phosphatase 67 U/L (35-105); Aspartate Amino Transferase 15 U/L (0-32); Blood Urea Nitrogen 16 mg/dL (8-23); Calcium 9.1 mg/dL (8.5-10.5); Carbon Dioxide 30 mmol/L (22-29); Chloride 100 mmol/L (98-107); Globulin 2.9 g/dL (1.3-4.6); Glucose 122 mg/dL (65-115); Osmolality Calculated 290 mOsm/kg (285-295); Sodium 139 mmol/L (136-145); Total Bilirubin 0.4 mg/dL (0.15-1.2); Total Protein 6.3 g/dL (6.6-8.7)
[2022-06-26 06:47] LABS: Anion Gap 12.5 (5-19); Potassium 3.5 mmol/L (3.5-5.1)
--- NOTE | 2022-06-26 07:30 | XACV_ITS ---
Exam Room: 2 Ht: 173 cm Wt: 73 kg BSA: 1.87 m2 Gender: Female : 1945 Any Known Allergies: Penicillins Exam Priority: Routine Procedure(s): Procedure Description: Diagnostic procedure Procedure Description: Peripheral Cath Diagnostic Procedure Procedure Description: Subclavian Angiography Procedure Description: Coronary Angiography Diagnostic Cath Status: Elective Diagnostic Findings * Normal left main with no disease. * Normal caliber calcified left anterior descending artery with 2 diagonal branches that wraps around apex. * S * evere distal LAD 70% stenosis, SOSA 3 flow. Mid LAD with mild 30-40% stenosis. Proximal segment of first diagonal with 70-80% stenosis. * Medium * caliber * circumflex artery with luminal irregularities. * Dominant right coronary artery. Severe 70-80% ostial RCA stenosis that appears to be calcified (dampening of waveform noted on engaging right coronary artery). Proximal segment of major acute marginal branch has 80% stenosis. SOSA-3 flow. * Case was discussed and images were reviewed with Dr. Pool. Upper Extremity Diagnostic Findings Due to tortuosity of subclavian artery, origin of right subclavian artery and proximal right subclavian artery were not well visualized via Right radial access. Conclusions Severe distal LAD 70% stenosis. Proximal segment of first diagonal with 70-80% stenosis. Severe 70-80% ostial RCA stenosis that appears to be calcified. Proximal segment of major acute marginal branch has 80% stenosis. Recommendations I discussed the case and reviewed images with Dr. Pool. As ostial right coronary artery is calcified and may require atherectomy, decision was made to treat patient medically first. Plan for stress testing as an outpatient. Based on stress test result and patient symptoms, we will proceed with PCI of RCA with surgical backup. Distal LAD is a small vessel and decision was made to treat that medically. Pressures Phase:Rest AO : 59 / 43 ( 52 ) @ 10:34:00 AM Hemodynamic Data Phase:Rest AO : 59.0 / 43.0 ( 52.0 ) @ 10:34:00 AM Clinical Evaluation EBL: 5mL-10mL Procedural Details Procedure Consent Obtained. Pre-Procedure Time Out. Identified patient by full name and date of as verbalized by the patient/guarantor. Does the consent match the physician's order: Yes. Accurate & Complete Informed Consent: Yes. Inpatient/Outpatient History & Physical on Chart: Yes. If H&P is completed, is and addenduem needed: No. Visualize and Verify Site with Patient/Guarantor: N/A. Relevant Radiology Images available: Yes. The risks, benefits, and alternatives of sedation and/or procedure were discussed by physician. The patient agrees to continue. Procedure started. [facility] Clinical Fraility Score: 3: Managing Well. High Wire Artist Indications: Worsening Angina/New onset CHF. Chest Pain Symptom Assessment: Atypical Angina. Cardiovascular Instability: No. Correct patient, site and procedure confirmed by cath team. PERRLA. Strong, equal hand speedometer mechanic bilaterally. Lungs clear x 5 lobes. IV Site on Arrival: 18 gauge in the left anticubital. IV Fluids: 0.9% NaCl at KVO. 100 mL infused prior to sawyer cork slabs. Pre Procedural Pulses: bilateral posterior tibial was 1+. Pre Procedural Pulses: bilateral dorsalis pedis was 1+. Pre Procedural Pulses: bilateral radial was 3+. Oxygen started at 2liters/min via nasal canula. right groin was prepped with chloroprep then draped in the usual sterile fashion. right radial was prepped with chloroprep then draped in the usual sterile fashion. Physician notified. Baseline sample Acquired. HR: 64 BPM. Patient's family unavailable. Equipment: 6F - Radial. Cardiac Cath Pack. ACIST Manifold Kit Model BT 2000. Heparinized Saline (2 units/mL), 1000 mL bag. Physician arrived. Physician scrubbed in. Immediate Pre-Procedure Time Out. Correct Patient: No; Correct Procedure: Yes; Correct Site: Yes; Correct Patient Position: Yes; Correct Supplies: Yes; Dried Flammable Prep: Yes; Blood Products Available: N/A. Lidocaine 1% infiltrated to the right radial. Arterial access obtained. A 5 maori TIG catheter in over the standard J wire. Standard J wire out. hand injection of the right SC performed through the TIG catheter x 2. Catheter removed over the standard J wire. Will move to femoral access. Lidocaine 1% infiltrated to the right groin. Arterial access obtained. Lidocaine 1% infiltrated to the right groin. Arterial access obtained. A 5 maori JL4 catheter in over wire. Multiple views taken of left coronary artery. Catheter removed over the standard J wire. A 5 maori JR4 catheter in over wire. Multiple views taken of right coronary artery. Catheter removed over the standard J wire. Side port of sheath attached to Heparinized Saline flush at KVO to maintain patency. Dr. Vega away from the scrub table to view cineography with Dr. Pool. Sheath(s) sutured into position with 2-0 silk and sterile 4x4's and Op-site applied over the site. No oozing or signs and symptoms of hematoma noted. Dr. Vega scrubbed out. Arterial sheath flushed and connected to tranducer and pressure bag with heparinized saline. Post Procedure: Pulses reassessed and unchanged. PERRLA. Strong, equal hand speedometer mechanic bilaterally. No VTE prophylaxis required. Medication's Wasted: Nitro = 49.8 mg. Medication's Wasted: Heparin = 4000 units. Total IV fluids: 78 mL. A TR Band was successful obtaining hemostatsis at the Right Radial artery insertion site. TR band placed. Hemostasis obtained. Post-op diagnosis: Severe CAD of the LAD and RCA. Medical management. Complications: none. Estimated blood loss: 5mL-10mL. Responsiveness - Normal response to verbal stimuli; alert and oriented, PERRLA. Airway - Unaffected, no intervention required; spontaneous ventilation. Circulation: W/N/L, pulses unchanged. Nausea/Vomiting: No. Procedure completed. Patient transferred by bed to [facility]. Vital chart was stopped. Access Site Site: Right Radial artery Sheath Size: 6 Fr Hemostasis Method: TR Band Hemostasis Success: Successful Site: Right Femoral artery Sheath Size: 6 Fr Hemostasis Success: Unsuccessful Procedure Medications Start: 8:51 AM Stop: 8:51 AM Medication: Versed Amount: 1 mg Route: I.V. Start: 8:52 AM Stop: 8:52 AM Medication: Fentanyl Amount: 50 mcg Route: I.V. Start: 8:55 AM Stop: 8:55 AM Medication: Versed Amount: 1 mg Route: I.V. Start: 9:13 AM Stop: 9:13 AM Medication: Versed Amount: 0.5 mg Route: I.V. Start: 9:15 AM Stop: 9:15 AM Medication: Fentanyl Amount: 25 mcg Route: I.V. Start: 9:15 AM Stop: 9:15 AM Medication: Versed Amount: 0.5 mg Route: I.V. I, the attending physician, have reviewed and verified all procedure medications. Yes, all medications given per verbal order History/Risk Factors Hypertension: Yes Dyslipidemia: No Peripheral Arterial Disease (PAD): No Myocardial Infarction (OK): No Obesity: No Renal Disease: No Prior Interventions PCI: No CABG: No Valve Surgery: No Report Signatures Finalized by Tatiana Vega MD on 07/06/2022 04:42 PM
--- NOTE | 2022-06-26 09:55 | P.PN_ITS ---
Subjective Subjective: Patient underwent left heart cath this morning. Medications: Reviewed: Yes Medication Review Details: Current Medications Acetaminophen (Acetaminophen 325 Mg Tablet) 650 mg PO Q6H PRN PRN Reason: Mild/Mod Pain Or Temp >/= 101 Last Admin: 06/25/22 03:34 Dose: 650 mg Al Hydrox/Mg Hydrox/Simethicone (Addr-Vvr-Rldntrzva-[place] 30 Ml Udc) 30 ml PO Q15M PRN PRN Reason: INDIGESTION Al Hydrox/Mg Hydrox/Simethicone (Whzi-Jyh-Otduvcrwc-[place] 30 Ml Udc) 30 ml PO Q15M PRN PRN Reason: INDIGESTION Amiodarone HCl (Amiodarone 200 Mg Tablet) 400 mg PO BID [facility] Last Admin: 06/26/22 10:23 Dose: 400 mg Amlodipine Besylate (Amlodipine 10 Mg Tablet) 5 mg PO DAILY [facility] Last Admin: 06/26/22 10:24 Dose: 5 mg Aspirin (Aspirin 81 Mg Ec Tablet) 81 mg PO DAILY [facility] Last Admin: 06/26/22 10:25 Dose: 81 mg Atorvastatin Calcium (Atorvastatin 40 Mg Tablet) 40 mg PO DAILY [facility] Last Admin: 06/26/22 10:24 Dose: 40 mg Atropine Sulfate (Atropine 1 Mg/Ml Sdv 1 Ml) 0.5 mg IVP PRN PRN PRN Reason: Symptomatic bradycardia Benzonatate (Benzonatate 100 Mg Capsule) 100 mg PO TID PRN PRN Reason: COUGH Last Admin: 06/24/22 11:52 Dose: 100 mg Bisacodyl (Bisacodyl 5 Mg Tablet) 10 mg PO DAILY PRN; Protocol PRN Reason: Constipation (see protocol) Clopidogrel Bisulfate (Clopidogrel 75 Mg Tablet) 75 mg PO DAILY [facility] Last Admin: 06/26/22 10:25 Dose: 75 mg Enoxaparin Sodium (Enoxaparin 80 Mg/0.8 Ml Syringe) 70 mg SUBCUT Q12H [facility] Last Admin: 06/26/22 10:25 Dose: Not Given Fentanyl (Fentanyl 50 Mcg/Ml Inj 2ml) 50 mcg IVP PRN PRN PRN Reason: Prior to sheath removal Fentanyl (Fentanyl 50 Mcg/Ml Inj 2ml) 50 mcg IVP PRN PRN PRN Reason: PAIN Furosemide (Furosemide 10 Mg/Ml Sdv 4ml) 40 mg IVP Q24H [facility] Last Admin: 06/26/22 05:47 Dose: 40 mg Ceftriaxone Sodium 1,000 mg/ (Sodium Chloride) 50 mls @ 100 mls/hr IV Q24H [facility]; Protocol Last Infusion: 06/25/22 18:09 Dose: Infused Sodium Chloride (Sodium Chloride 0.9%) 1,000 mls @ 50 mls/hr IV .Q20H ONE Stop: 06/27/22 03:29 Last Admin: 06/26/22 06:36 Dose: 50 mls/hr Sodium Chloride (Sodium Chloride 0.9%) 1,000 mls @ 100 mls/hr IV .Q10H [facility] Last Admin: 06/26/22 10:27 Dose: 100 mls/hr Levalbuterol HCl (Levalbuterol 1.25 Mg/3 Ml Neb) 1.25 mg INHALATION Q6H.RESP [facility] Last Admin: 06/26/22 09:06 Dose: Not Given Magnesium Hydroxide (Magnesium Hydroxide 30 Ml Udc) 30 ml PO DAILY PRN PRN Reason: CONSTIPATION Magnesium Hydroxide (Magnesium Hydroxide 30 Ml Udc) 30 ml PO DAILY PRN PRN Reason: CONSTIPATION Metoprolol Tartrate (Metoprolol Tartrate 25 Mg Tablet) 25 mg PO ONCE [facility] Last Admin: 06/25/22 10:16 Dose: 25 mg Metoprolol Tartrate (Metoprolol Tartrate 50 Mg Tablet) 75 mg PO BID@0900,2100 [facility] Last Admin: 06/26/22 10:26 Dose: Not Given Naloxone HCl (Naloxone 0.4 Mg/Ml Sdv) 0.1 mg IVP Q2M PRN PRN Reason: RESPIRATORY RATE < 8/MIN Naloxone HCl (Naloxone 0.4 Mg/Ml Sdv) 0.1 mg IVP Q2M PRN PRN Reason: RESPIRATORY RATE < 8/MIN Nitroglycerin (Nitroglycerin 0.4 Mg Sublingual Tablet) 0.4 mg SUBLINGUAL Q5M PRN PRN Reason: CHEST PAIN Non-Formulary Medication (Usana Antioxidant) 1 tab PO DAILY [facility] Last Admin: 06/26/22 10:26 Dose: Not Given Non-Formulary Medication (Usana Eye Vitamins) 1 tab PO DAILY [facility] Last Admin: 06/26/22 10:26 Dose: Not Given Non-Formulary Medication (Usana Multi-Vitamin Womens) 1 tab PO DAILY [facility] Last Admin: 06/26/22 10:27 Dose: Not Given Ondansetron HCl (Ondansetron 2 Mg/Ml Sdv 2 Ml) 4 mg IVP Q8H PRN PRN Reason: vomiting, or N/V if npo Last Admin: 06/24/22 08:32 Dose: 4 mg Temazepam (Temazepam 15 Mg Capsule) 15 mg PO BEDTIME PRN PRN Reason: INSOMNIA Vitals/I&O/Wt Last Vital Signs Temp 97.9 F 06/26/22 08:00 Pulse 56 L 06/26/22 08:00 Resp 18 06/26/22 08:00 BP 143/66 06/26/22 08:00 Pulse Ox 93 06/26/22 08:00 O2 Del Method 06/26/22 04:00 O2 Flow Rate 2 06/26/22 04:00 FiO2 35 06/26/22 04:00 06/25/22 06/26/22 06/26/22 22:59 06:59 14:59 Intake Total 650 / 990 100 / 1090 Balance 650 / 790 100 / 890 Physical Exam Narrative: GENERAL: Averagely built and averagely nourished in no acute distress HEENT: Extraocular movement intact. No pallor or icterus. NECK: central trachea, No JVD, No carotid bruit. CARDIOVASCULAR SYSTEM: S1-S2 regular. No murmur rubs or gallops. RESPIRATORY SYSTEM: Chest clear to auscultation. No wheezes rhonchi or rubs heard. No use of accessory muscles. ABDOMEN: Soft, nontender and nondistended. Normal bowel sounds present. EXTREMITIES: No cyanosis or edema. No signs of chronic venous insufficiency. BROKERAGE OFFICE MANAGER: Patient is alert oriented ?3. No focal neurological deficits. Data : 06/26/22 05:27 06/26/22 05:27 A&P Assessment and plan (1) Acute non-ST elevation myocardial infarction (NSTEMI): EKG showed sinus rhythm, borderline LAD. Moderate IVCD. ST and T wave abnormality, consider lateral ischemia Baseline troponin T 65--> 129--> 160 We will continue the ASA, lipitor, Lovenox, Plavix and metoprolol -LHC today showed px D1 severe 80% stenosis, distal LAD 70% stenosis, ostial RCA calcified severe stenosis and px acute marginal branch with 80% stenosis. -Images were reviewed and discussed with Dr. Pool. -Ostial RCA stenosis appears to be calcified. As there is no surgical backup today, and stenosis may require atherectomy decision was made to treated medically first and assess patient's response. -distal LAD is a small artery and decision was made to treat that medically -This was discussed in detail with the patient and patient's daughter. -Patient's daughter also recorded the exchange without my consent that I realized towards the end of my conversation which is grossly inappropriate. Status: Acute (2) Atrial fibrillation with rapid ventricular response: converted to SR -May transition to Eliquis Status: Acute (3) Hypertension: Med changes noted. Status: Acute (4) Right subclavian artery occlusion: She seems to be fairly asymptomatic at this time. will plan to further evaluate it with angiogram Status: Acute (5) Community acquired pneumonia: Management as per the primary service Status: Acute Attestations Medical Necessity Statement*: Needs hospital stay for medication titration for coronary artery disease and atrial fibrillation Coding Level of Care Code Acute Thermometer Production Worker for [facility] Fwd Diagnoses Acute non-ST elevation myocardial infarction (NSTEMI) I21.4 Atrial fibrillation with rapid ventricular response I48.91 Hypertension I10 Right subclavian artery occlusion I70.8 Community acquired pneumonia J18.9
[2022-06-26] MEDS: amiodarone 200 mg Tablet 400 MG PO (10:23)
[2022-06-26] MEDS: atorvastatin 40 mg Tablet PO (10:24)
[2022-06-26] MEDS: amlodipine 10 mg Tablet 5 MG PO (10:24)
[2022-06-26] MEDS: clopidogrel 75 mg Tablet PO (10:25)
[2022-06-26] MEDS: aspirin 81 mg EC Tablet PO (10:25)
[2022-06-26] MEDS: sodium chloride 0.9% 1,000 ML 100 ML IV (10:27)
--- NOTE | 2022-06-26 12:17 | ECG_ITS ---
[facility] Test Date: 2022-06-26 Pat Name: Tiesha Kaba Department: Room: 277 Gender: Female Wall Taper: : 1945 Requested By: Tatiana Vega Order Number: [id number] Martita MD: Tatiana Vega M.D. Measurements Intervals [place] Rate: 70 P: 69 WI: 177 QRS: -26 QRSD: 116 T: 156 QT: 472 QTc: 512 Interpretive Statements SINUS RHYTHM BORDERLINE LEFT AXIS DEVIATION [QRS AXIS < -20] MODERATE INTRAVENTRICULAR CONDUCTION DELAY [110+ ms QRS DURATION] ST DEVIATION AND MODERATE T-WAVE ABNORMALITY, CONSIDER ANTEROLATERAL ISCHEMIA [-0.1+ mV T-WAVE IN V3-V6] Compared to ECG 06/23/2022 21:12:45 Intraventricular conduction delay now present Atrial fibrillation no longer present Myocardial infarct finding no longer present T-wave abnormality still present Possible ischemia still present Electronically Signed On 06-27-2022 8:36:19 CDT by Tatiana Vega M.D. [id number]
--- NOTE | 2022-06-26 12:51 | PC.NURSE ---
received from cardiac fish farm laborer at 1005 via bed.report received.pt is alert and awake and oriented x 4.sb on monitor.bp stable.pt denies pain.right radial tr band on and inflated.right hand is warm to touch and with brisk capillary refill.no hematoma noted.palpable radial pulse noted distal to tr band.right femoral arterial sheath intact to pressurized system.right groin drsg is dry and intact.no hematoma noted.right leg is warm to touch and with brisk capillary refill.palpable dp pulse noted. pt instructed in activity restrictions s/p right radial and right femoral procedures...and instructed to notify staff for any bleeding,pain,chest pain,sob,numbness..or for any concerns at all.pt verb understanding of instructions
--- NOTE | 2022-06-26 13:09 | PC.SOCIAL ---
IMM update IMM updated with patient. Verbalized an understanding. Copy Pg 2 provided. Initialled, dated, timed, and placed in chart.
--- NOTE | 2022-06-26 14:14 | PC.NURSE ---
right femoral sheath removed at 1330.manual pressure applied x 20 min.vss through-out procedure.no hematoma formation noted.right leg remains warm to touch and with brisk capillary refill.palpable dp pulse noted.site dressed with 2x2 gauze and secured with biocclusive drsg.pt instructed in activity restrictions s/p femoral artery sheath pull...and instructed to notify staff for any bleeding,pain,numbness,or for any concerns at all.pt verb understanding of instructions
--- NOTE | 2022-06-26 16:11 | PC.NURSE ---
tr band slowly deflated and eventually removed at 1430.right hand remains warm to touch and with brisk capillary refill.palpable radial pulse noted.no hematoma noted.site dressed with 2x2 gauze and secured with biocclusive drsg.pt instructed in activity restrictions s/p tr band removal and instructed to notify staff for any bleeding,pain,numbness..or for any concerns at all.pt verb understanding of instructions
--- NOTE | 2022-06-26 16:37 | P.PN_ITS ---
Subjective Subjective: Patient was seen and examined this morning, underwent left heart cath, she has also converted to sinus rhythm, with heart rate into low to mid 50s, will hold a.m. dose of metoprolol.We will continue with Amiodarone po dose. Medications: Reviewed: Yes Medication Review Details: Generic Name Dose Route Start Last Admin Trade Name Freq PRN Reason Stop Dose Admin Acetaminophen 650 mg 06/23/22 18:21 06/25/22 03:34 Acetaminophen 32 5 Mg Tablet PO 650 mg Q6H PRN Administration Mild/Mod Pain Or Temp >/= 101 Aspirin 81 mg 06/24/22 09:00 06/26/22 10:25 Aspirin 81 Mg Ec Tablet PO 81 mg DAILY PIETER Administration Atorvastatin Calci um 40 mg 06/24/22 09:00 06/26/22 10:24 Atorvastatin 40 Mg Tablet PO 40 mg DAILY PIETER Administration Benzonatate 100 mg 06/24/22 08:01 06/24/22 11:52 Benzonatate 100 Mg Capsule PO 100 mg TID PRN Administration COUGH Clopidogrel Bisulf ate 75 mg 06/24/22 15:10 06/26/22 10:25 Clopidogrel 75 M g Tablet PO 75 mg DAILY PIETER Administration Ceftriaxone Sodium 1,000 mg/ 50 mls @ 100 mls/ hr 06/24/22 17:00 06/25/22 18:09 Sodium Chloride IV Infused Q24H PIETER Infusion Protocol Sodium Chloride 1,000 mls @ 50 ml s/hr 06/26/22 07:30 06/26/22 06:36 Sodium Chloride 0.9% IV 06/27/22 03:29 50 mls/hr .Q20H ONE Administration Sodium Chloride 1,000 mls @ 100 m ls/hr 06/26/22 10:00 06/26/22 10:27 Sodium Chloride 0.9% IV 100 mls/hr .Q10H PIETER Administration Levalbuterol HCl 1.25 mg 06/25/22 14:00 06/26/22 09:06 Levalbuterol 1.2 5 Mg/3 Ml Neb INHALATION Not Given Q6H.RESP PIETER Metoprolol Tartrat e 25 mg 06/25/22 10:15 06/25/22 10:16 Metoprolol Tartr ate 25 Mg Tablet PO 25 mg ONCE PIETER Administration Non-Formulary Medi cation 1 tab 06/24/22 09:00 06/26/22 10:26 Usana Antioxidan t PO Not Given DAILY PIETER Non-Formulary Medi cation 1 tab 06/24/22 09:00 06/26/22 10:26 Usana Eye Vitami ns PO Not Given DAILY PIETER Non-Formulary Medi cation 1 tab 06/24/22 09:00 06/26/22 10:27 Usana Multi-Meena min Womens PO Not Given DAILY PIETER Ondansetron HCl 4 mg 06/23/22 18:21 06/24/22 08:32 Ondansetron 2 Mg /Ml Sdv 2 Ml IVP 4 mg Q8H PRN Administration vomiting, or N/V if npo Vitals/I&O/Wt Last Vital Signs Temp 97.8 F 06/26/22 12:00 Pulse 68 06/26/22 14:12 Resp 29 H 06/26/22 14:12 BP 160/87 06/26/22 13:00 Pulse Ox 93 06/26/22 14:12 O2 Del Method 06/26/22 14:12 O2 Flow Rate 2 06/26/22 14:12 FiO2 35 06/26/22 16:00 06/26/22 06/26/22 06/26/22 06:59 14:59 22:59 Intake Total 100 / 1090 Output Total 400 / 400 Balance 100 / 890 -400 / -400 Physical Exam Const: COMMON NORMALS: patient oriented x3 Resp: COMMON NORMALS: No use of accessory muscles and clear to auscultation bilaterally AUSCULTATION: clear to auscultation bilaterally OTHER: Minimal B/L basal Crackles present in both lungs grayson Cardio: COMMON NORMALS: regular rate, regular rhythm, S1 normal heart sound present, S2 normal heart sound present, No gallops present (Cardio), No murmurs present (Cardio), No rub (Cardio) and Peripheral pulses 2+ throughout RATE: regular rate RHYTHM: regular rhythm HEART SOUNDS: S1 normal heart sound present and S2 normal heart sound present PERIPHERAL PULSES: Peripheral pulses 2+ throughout GI: COMMON NORMALS: Normal to inspection, nondistended, normoactive bowel sounds present, Soft to palpation, non-tender, No hepatosplenomegaly present and no masses AUSCULTATION: Yes normoactive bowel sounds PALPATION: Yes Soft to palpation and Yes No hepatosplenomegaly present RECTAL EXAM: deferred Extremity: COMMON NORMALS: no clubbing, cyanosis or edema and no pedal edema Neuro: COMMON NORMALS: patient oriented x3 Data : 06/26/22 05:27 06/26/22 05:27 A&P Assessment and plan (1) Acute non-ST elevation myocardial infarction (NSTEMI): Status: Acute (2) Pneumonia: Status: Acute (3) Hypertension: Status: Acute (4) Right subclavian artery occlusion: Status: Acute Plan 76 year old female with past medical history of HTN, right subclavian artery stenosis,TIA, came in with chief complaint of acute onset of shortness of breat h, started today progressively worsening , with some occasional cough, she denied any chest pain, diaphoresis, nausea vomiting, fever, sick contact. Assessment: NSTEMI Pneumonia Newly diagnosed heart failure with reduced ejection fraction as well as HFpEF Newly diagnosed A. fib with RVR: Converted to normal sinus rhythm. Hypertension Mild pulmonary hypertension Plan: Most recent 2D echo done in May: Showed normal LV size and systolic function, no RWMA, LVEF of 65%grade 2 diastolic dysfunction, mild pulmonary hypertension. Repeat 2D echo: Moderate concentric left ventricular hypertrophy.? LV ejection fraction around 45%(visual).? Diffuse hypokinesis of the left ventricle.?Grade III/IV diastolic dysfunction. EF interpretation can be difficult in the presence of A. fib. S/p: Left heart cath: px D1 severe 80% stenosis, distal LAD 70% stenosis, ostial RCA? calcified severe stenosis and px acute marginal branch with 80% stenosis. Current plan is to currently treat the patient medically. And plan for outpatient intervention with surgical backup as -Ostial RCA stenosis appears to be calcified and may require atherectomy. Blood culture:NTD Urine Legionella antigen: Negative Bacterial antigen panel: Negative Procalcitonin: 0.83 TSH : 1.13 On aspirin , statin, beta-hermes, Plavix Was on therapeutic Ac with Lovenox, has been switched to Eliquis Was on amiodarone 400 mg p.o. twice daily, dose has been reduced to 200 mg p.o. twice daily Was on Lasix 40 mg IV daily, currently has been discontinued. On Rocephin and doxycycline, for possible pneumonia, given her overall presentation clinical suspicion is low. Monitor for QTc interval DuoNebs CODE STATUS: Full code DVT prophylaxis: On Lovenox Attestations Medical Necessity Statement*: Patient is in hospital for management of NSTEMI. Coding Level of Care Code Acute Customer Data Technician for g Fwd Exam Detailed Diagnoses Acute non-ST elevation myocardial infarction (NSTEMI) I21.4 Pneumonia J18.9 Hypertension I10 Right subclavian artery occlusion I70.8
[2022-06-26] MEDS: cefTRIAXone 1,000 MG in sodium chloride 0.9% (plus) 50 ML 100 MG IV (17:34)
[2022-06-26] MEDS: amiodarone 200 mg Tablet PO (17:35)
[2022-06-26] MEDS: amlodipine 5 mg Tablet PO (17:35)
--- NOTE | 2022-06-26 19:00 | PC.NURSE ---
Patients right wrist site has dressing that is dry and intact, site is soft, no hematoma present, radial pulse is palpable, and patient denies tenderness. Right groing site is soft, no hematoma present, dressing is dry and intact. Small bruise is noted. patient states right groin site is tender when palpated but otherwise denies tenderness.
[2022-06-26] MEDS: metoprolol tartrate 25 mg Tablet 12.5 MG PO (21:11)
[2022-06-26] MEDS: apixaban 5 mg Tablet PO (21:11)
[2022-06-27] VITALS: BP 124/64; PULSE 62; RESP 13; TEMP 37.3; O2SAT 93
[2022-06-27 03:36] VITALS: BP 176/82; PULSE 62; RESP 14; TEMP 36.9; O2SAT 94
--- NOTE | 2022-06-27 04:07 | PC.NURSE ---
Patients right wrist site has dressing that is dry and intact, site is soft, no hematoma present, radial pulse is palpable, and patient denies tenderness. Right groin site is soft, no hematoma present, dressing is dry and intact. Small bruise is noted. Patient denies tenderness.
[2022-06-27 05:00] VITALS: PULSE 53
[2022-06-27 07:51] VITALS: BP 139/70; PULSE 77; RESP 20; TEMP 36.6; O2SAT 94
[2022-06-27 08:38] VITALS: PULSE 68; RESP 16; O2SAT 91
[2022-06-27] MEDS: aspirin 81 mg EC Tablet PO (08:47)
[2022-06-27] MEDS: amlodipine 10 mg Tablet PO (08:48)
[2022-06-27] MEDS: amiodarone 200 mg Tablet PO (08:48)
[2022-06-27] MEDS: clopidogrel 75 mg Tablet PO (08:48)
[2022-06-27] MEDS: atorvastatin 40 mg Tablet PO (08:48)
--- NOTE | 2022-06-27 09:08 | P.PN_ITS ---
Subjective Subjective: She is feeling well and remains in SR. Medications: Reviewed: Yes Vitals/I&O/Wt Last Vital Signs Temp 97.8 F 06/27/22 07:51 Pulse 68 06/27/22 08:38 Resp 16 06/27/22 08:38 BP 139/70 06/27/22 07:51 Pulse Ox 91 06/27/22 08:38 O2 Del Method 06/27/22 08:38 O2 Flow Rate 2 06/27/22 03:36 FiO2 35 06/26/22 16:00 06/26/22 06/27/22 06/27/22 22:59 06:59 14:59 Intake Total 2390 / 2390 240 / 2630 Output Total 400 / 800 Balance 239 / 1989 -160 / 1830 Physical Exam Narrative: GENERAL: Averagely built and averagely nourished in no acute distress HEENT: Extraocular movement intact. No pallor or icterus. NECK: central trachea, No JVD, No carotid bruit. CARDIOVASCULAR SYSTEM: S1-S2 regular. No murmur rubs or gallops. RESPIRATORY SYSTEM: Chest clear to auscultation. No wheezes rhonchi or rubs heard. No use of accessory muscles. ABDOMEN: Soft, nontender and nondistended. Normal bowel sounds present. EXTREMITIES: No cyanosis or edema. No signs of chronic venous insufficiency. Right groin with mild bruising. No hematoma. Right wrist with no hematoma, 2+ peripheral pulses CLINICAL NURSING COORDINATOR: Patient is alert oriented ?3. No focal neurological deficits. Data : 06/26/22 05:27 06/26/22 05:27 A&P Assessment and plan (1) Acute non-ST elevation myocardial infarction (NSTEMI): EKG showed sinus rhythm, borderline LAD. Moderate IVCD. ST and T wave abnormality, consider lateral ischemia Baseline troponin T 65--> 129--> 160 We will continue the ASA, lipitor, Lovenox, Plavix and metoprolol -LHC today showed px D1 severe 80% stenosis, distal LAD 70% stenosis, ostial RCA calcified severe stenosis and px acute marginal branch with 80% stenosis. -Images were reviewed and discussed with Dr. Pool. -Ostial RCA stenosis appears to be calcified. As there is no surgical backup today, and stenosis may require atherectomy decision was made to treated medically first and assess patient's response. -distal LAD is a small artery and decision was made to treat that medically -This was discussed in detail with the patient and patient's daughter. -Patient's daughter also recorded the exchange without my consent that I realized towards the end of my conversation which is grossly inappropriate. Status: Acute (2) Atrial fibrillation with rapid ventricular response: converted to SR -May transition to Eliquis -Amiodarone 200 mg BID x 2 weeks and then amiodarone 200 mg daily. -continue metoprolol tartrate 12.5 mg twice a day -BP/HR log x 2 weeks -f/u in 1 week with Rocio and f/u with Dr. Guzman in 6-8 weeks Status: Acute (3) Hypertension: Med changes noted. Status: Acute (4) Right subclavian artery occlusion: Patient is asytomatic, not well visualized with angiogram Status: Acute (5) Community acquired pneumonia: Off antibiotics now Status: Acute Attestations Medical Necessity Statement*: stable to be discharged home Coding Level of Care Code Acute Fashion Designer for Carlito Quick Diagnoses Acute non-ST elevation myocardial infarction (NSTEMI) I21.4 Atrial fibrillation with rapid ventricular response I48.91 Hypertension I10 Right subclavian artery occlusion I70.8 Community acquired pneumonia J18.9
[2022-06-27] MEDS: apixaban 5 mg Tablet PO (09:17)
[2022-06-27] MEDS: metoprolol tartrate 25 mg Tablet 12.5 MG PO (09:18)
[2022-06-27 11:49] VITALS: BP 161/78; PULSE 75; RESP 20; TEMP 36.8; O2SAT 93
--- NOTE | 2022-06-27 13:49 | PM.DCS ---
Discharge Providers Date of Admission: 06/23/22 18:21 Date of Discharge: June 27, 2022 Attending Provider at Admission: Kodi Melton MD Attending Provider at Discharge: Mateo Mueller MD Consults: Dr. Guzman and Dr. Vega Cardiology Primary Care Provider: Ricardo Coronado MD Diagnoses at Discharge Discharge Diagnosis (1) Acute non-ST elevation myocardial infarction (NSTEMI): Details from hospital stay: Patient with troponin elevation and acute congestive heart failure exacerbation much improved with diuresis Given the significant coronary artery disease and A. fib likely both have contributed to her decrease in EF from 65% to 45%. She will undergo medical management as recommended by the cardiology team and follow-up with Dr. Guzman in 2 weeks CXR much improved today no pulmonary edema RN didnt document todays weight yet Status: Acute (2) Atrial fibrillation with rapid ventricular response: Details from hospital stay: She has converted to sinus rhythm and will be on amiodarone plus lowered metoprolol dose Status: Acute (3) Hypertension: Details from hospital stay: Mildly elevated continue with blood pressure management and daily weights Status: Acute (4) Right subclavian artery occlusion: Details from hospital stay: I have ordered a dedicated right subclavian ultrasound as suggested by the radiologist. Please note that patient has a small right vertebral artery she denies symptoms of dizziness and passing out but I did warn her that should she have those symptoms could be related to her right subclavian and that she should return Status: Acute (5) Community acquired pneumonia: Details from hospital stay: Review of the data shows elevated white count but the bilateral pulmonary edema and chest x-ray evidence of cardiomegaly are more consistent with acute congestive heart failure. I do not think she had pneumonia and antibiotics will not be continued Status: Acute Reason for Visit Reason for Visit: sob Brief History: Patient was progressively dyspneic on exertion and found to have acute congestive heart failure and NSTEMI Hospital Course Hospital Course Patient was diuresed and dyspnea on exertion rapidly improved. There were no additional signs of pneumonia other than the admit elevated white count. X-ray is more consistent with congestive heart failure due to NSTEMI and atrial fibrillation. Patient was converted to sinus rhythm with amiodarone and metoprolol was decreased to 12.5 mg twice a day Repeat chest x-ray today and weight show significant improvement. Patient will continue on daily weights at home lungs are clear. She was counseled regarding subclavian stenosis and potential subclavian steal. She was also counseled regarding coronary artery disease and need for follow-up with cardiology for additional angiogram. Potentially she will have intervention for her coronary artery. Physical Exam Narrative: General well-developed well-nourished female in no acute cardiopulmonary distress she is accompanied by her daughter. Daughter asked to video my explanation to them to share with patient's other daughter which I allowed. CV regular rate and rhythm with a 4/6 to 5/6 systolic ejection murmur heard at the right upper sternal border and right chest. I could also hear this in the right carotid given the area of this murmur it may be that this represents her subclavian stenosis Lungs clear to auscultation bilaterally on posterior exam without lung crackles or wheezing Abdomen positive bowel sounds soft nontender calves no tenderness supratip edema Mentation alert and orient x3 mood and affect are normal Discharge Data Studies Completed and Pending Completed Studies During Hospitalization Category Date Time Status XR chest 1V portable [id number] Stat Exams 06/23/22 15:04 Completed CV. 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 Extensive interstitial and airspace infiltrates throughout both lungs. This could represent pneumonia or acute pulmonary edema. 2. Cardiac enlargement. Laboratory Results WBC 5.3 10^3/uL (4.0-10.0) 06/26/22 05:27 RBC 4.47 10^6/uL (4.1-5.3) 06/26/22 05:27 Hgb 13.1 g/dL (11.5-15.3) 06/26/22 05:27 Hct 40.9 % (37.0-47.0) 06/26/22 05:27 MCV 91.5 fl (81-99) 06/26/22 05:27 MCH 29.3 pg (28.0-34.0) 06/26/22 05:27 MCHC 32.0 g/dL (30.0-36.0) 06/26/22 05:27 RDW 12.5 % (12.1-15.1) 06/26/22 05:27 Plt Count 348 10^3/cmm (130-400) 06/26/22 05:27 MPV 10.1 fL (7.4-10.4) 06/26/22 05:27 Neut % (Auto) 54.6 % 06/26/22 05:27 Lymph % (Auto) 30.9 % 06/26/22 05:27 [place] % (Auto) 10.7 % 06/26/22 05:27 Eos % (Auto) 3.0 % 06/26/22 05:27 Baso % (Auto) 0.6 % 06/26/22 05:27 Neut # (Auto) 2.90 10^3/uL (1.8-7.7) 06/26/22 05:27 Lymph # (Auto) 1.6 10^3/uL (0.8-4.8) 06/26/22 05:27 [place] # (Auto) 0.6 10^3/uL (0.2-0.9) 06/26/22 05:27 Eos # (Auto) 0.2 10^3/uL (0.0-0.8) 06/26/22 05:27 Baso # (Auto) 0.0 10^3/uL (0.0-0.1) 06/26/22 05:27 Nucleated RBC % (auto) 0 % 06/26/22 05:27 Nucleated RBCs # 0.0 /100WBC 06/26/22 05:27 PT 13.80 SECONDS (12.1-14.9) 06/24/22 05:16 INR 1.03 (0.8-1.2) 06/24/22 05:16 Specimen Type Arterial 06/23/22 15:58 Sample Site Radial, left 06/23/22 15:58 ABG pH 7.39 (7.35-7.45) 06/23/22 15:58 ABG pCO2 40.4 mmHg (35-45) 06/23/22 15:58 ABG pO2 110.0 mmHg (80.0-100.0) H 06/23/22 15:58 ABG HCO3 24.6 mmol/L (22-26) 06/23/22 15:58 ABG Base Excess -0.3 mmol/L (-2.0-2.0) 06/23/22 15:58 Clement Test Pos 06/23/22 15:58 Hematocrit 43.0 % (37-47) 06/23/22 15:58 Hgb O2 Saturation 96.9 % (95-100) 06/23/22 15:58 Carboxyhemoglobin 1.0 %THgb (0.4-20.1) 06/23/22 15:58 Methemoglobin 0.9 % (0.4-1.5) 06/23/22 15:58 Total Hemoglobin 14.0 g/dL (12-16) 06/23/22 15:58 O2 Delivery Device Bipap 06/23/22 15:58 FiO2 40.0 % 06/23/22 15:58 Tax Examining Technician ID Cak 06/23/22 15:58 Sodium 139 mmol/L (136-145) 06/26/22 05:27 Potassium 3.5 mmol/L (3.5-5.1) 06/26/22 05:27 Chloride 100 mmol/L (98-107) 06/26/22 05:27 Carbon Dioxide 30 mmol/L (22-29) H 06/26/22 05:27 Anion Gap 12.5 (5-19) 06/26/22 05:27 BUN 16 mg/dL (8-23) 06/26/22 05:27 Creatinine 0.7 mg/dL (0.5-0.9) 06/26/22 05:27 GFR Calculation Not Reportable 06/26/22 05:27 Glucose 122 mg/dL (65-115) H 06/26/22 05:27 Calculated Osmolality 290 mOsm/kg (285-295) 06/26/22 05:27 Lactic Acid 1.5 mmol/L (0.5-2.2) 06/24/22 05:16 Lactic Acid (Sepsis) 1.4 mmol/L (0.5-2.2) 06/23/22 19:14 Calcium 9.1 mg/dL (8.5-10.5) 06/26/22 05:27 Magnesium 1.8 mg/dL (1.7-2.3) 06/24/22 05:16 Total Bilirubin 0.4 mg/dL (0.15-1.2) 06/26/22 05:27 AST 15 U/L (0-32) 06/26/22 05:27 ALT 11 U/L (0-33) 06/26/22 05:27 Alkaline Phosphatase 67 U/L (35-105) 06/26/22 05:27 Troponin T Baseline 65 ng/L (0-10) H 06/23/22 15:23 Troponin T 120 Minute 129.1 ng/L (0-10) H 06/23/22 16:53 Delta Troponin T 64.1 ABS# (0-10) H* 06/23/22 16:53 Troponin T Hi Sens 6Hr 160.0 ng/L (0-10) H 06/23/22 21:05 Troponin T Hi Sens 6Hr Delta 95.0 ng/L (0-12) H* 06/23/22 21:05 NT-Pro-B Natriuret Pep 1263 pg/mL (0-450) H 06/23/22 15:52 Total Protein 6.3 g/dL (6.6-8.7) L 06/26/22 05:27 Albumin 3.4 g/dL (3.5-5.2) L 06/26/22 05:27 Globulin 2.9 g/dL (1.3-4.6) 06/26/22 05:27 Triglycerides 141 mg/dL (0-150) 06/24/22 05:16 Cholesterol 199 mg/dL (0-200) 06/24/22 05:16 LDL Cholesterol, Calc 138 mg/dL (50-129) H 06/24/22 05:16 HDL Cholesterol 33 mg/dL (60-100) L 06/24/22 05:16 LDL/HDL Ratio 4.18 RATIO (0.00-3.22) H 06/24/22 05:16 Cholesterol/HDL Ratio 6.03 mg/dL (0.0-4.40) H 06/24/22 05:16 Procalcitonin 0.83 ng/mL (0-0.5) H 06/24/22 05:16 TSH 1.13 uIU/mL (0.27-4.20) 06/24/22 05:16 SARS-CoV-2 Ag (Rapid) Negative (Negative) 06/23/22 15:35 Vitals Last Vital Signs Temp 98.2 F 06/27/22 11:49 Pulse 75 06/27/22 11:49 Resp 20 H 06/27/22 11:49 BP 161/78 06/27/22 11:49 Pulse Ox 93 06/27/22 11:49 O2 Del Method 06/27/22 11:49 O2 Flow Rate 2 06/27/22 03:36 FiO2 35 06/26/22 16:00 Discharge Plan Discharge Patient Disposition: Home Condition: Stable Prescriptions: New amiodarone 200 mg tablet 200 mg PO BID Qty: 60 3RF Rx Instructions: Take 200 mg PO BID x 2 weeks and then 200 mg daily atorvastatin 40 mg Tablet 40 mg PO DAILY Qty: 30 3RF clopidogrel 75 mg Tablet 75 mg PO DAILY Qty: 30 3RF nitroglycerin 0.4 mg Tablet, Sublingual 0.4 mg sublingual Q5M PRN (Reason: Chest Pain) Qty: 30 0RF metoprolol tartrate 25 mg Tablet 12.5 mg PO BID@0900,2100 Qty: 30 2RF Eliquis 5 mg Tablet 5 mg PO BID@0900,2100 Qty: 60 3RF amlodipine 10 mg Tablet 10 mg PO DAILY Qty: 30 3RF Lasix 20 mg tablet 20 mg PO DAILY Qty: 30 3RF Continued Usana Antioxidant 1 tab PO DAILY Usana Eye Vitamins 1 tab PO DAILY Usana Multi-Vitamin Womens 1 tab PO DAILY Discontinued clonidine HCl 0.1 mg tablet 0.05 mg PO TID propranolol 10 mg tablet 10 mg PO BID aspirin [Aspir-81] 81 mg Tablet,Delayed Release (Dr/Ec) 81 mg PO DAILY Discharge Orders: Discharge Order (Routine); Ordered 06/27/22 Ordered By: Mateo Mueller Other Ambulatory Orders: [place] [id number] (Routine) Timeframe: 1 Week Facility: [facility] - Location: Radiology Ordered By: Mateo Mueller Referrals: Adams Guzman MD [Physician] - 2 weeks Rocio Mullen FNP [Nurse Practitioner] - 1 week Ricardo Coronado MD [Primary Care Provider] - Discharge Diet: Cardiac and Low Fat Discharge Activity: Limit activity as instructed Patient Instructions: Metoprolol (By mouth), Nitroglycerin (By mouth), Furosemide (By mouth), Amiodarone (By mouth), Amlodipine (By mouth), Atorvastatin (By mouth), Clopidogrel (By mouth), Apixaban (By mouth), A-fib (Atrial Fibrillation) (DC), Opioid Safety Activity Restrictions/Additional Instructions: Do not lift anything more than 5 lbs for 1 week. Keep the site dry and clean Take medications as prescribed and follow up as scheduled. Blood pressure and heart rate log x 2 weeks weigh self daily, your weight should not be rising at home and if it does then water retention would be suspected and you should notify your physician return for heart racing, chest pain or light headedness or dizziness Discharge Attestations Time Spent in Discharge Care*: greater than 30 min Quality Metrics Clinical Quality Measures [ Acute Myocardial Infaction { Clinical Trial Participant: No; Contraindication to aspirin: Other; Contraindication to statin: Other;}] Coding Level of Care Code Established Pt Acute Chg FW DC note Patient Type Established History Detailed Exam Detailed Medical Decision Making High Complexity Diagnoses Acute non-ST elevation myocardial infarction (NSTEMI) I21.4 Atrial fibrillation with rapid ventricular response I48.91 Hypertension I10 Right subclavian artery occlusion I70.8 Community acquired pneumonia J18.9
--- NOTE | 2022-06-27 13:57 | XRR_ITS ---
PROCEDURE INFORMATION: Exam: XR Chest Exam date and time: 06/27/2022 2:10 PM Age: 76 years old Clinical indication: Cardiovascular condition or disease; Congestive heart failure (chf); Cause unknown TECHNIQUE: Imaging protocol: Radiologic exam of the chest. Views: 1 view. COMPARISON: CR XR chest 1V portable [id number] 06/23/2022 3:23 PM FINDINGS: Lungs: Unremarkable. No consolidation. Pleural spaces: Unremarkable. No pleural effusion. No pneumothorax. Heart/Mediastinum: Cardiomegaly. Bones/joints: Unremarkable. Other findings: Diffuse interstial edema. XR/XR chest 1V portable [id number] IMPRESSION: 1. Cardiomegaly. 2. Diffuse interstial edema.
--- NOTE | 2022-06-27 14:52 | PC.NURSE ---
Patient discharged at 1430 via wheelchair with daughter at side. IV removed and intact. Education and discharge instructions given, including to call specified clinics tomorrow (after ) and schedule follow up appointments. All personal belongings taken home with patient. Patient verbalized understanding on discharge instructions.
== END 2022-06-27 14:30 | disposition home or self-care (01) | DRG 280 ==
LOC: ER 20:06 → MEDSURG 20:35
PROVIDERS: Internal Medicine Cardiovascular Disease; Admitting Provider Internal Medicine; Emergency Provider Emergency Medicine; PCP Family Medicine; Visit Provider Internal Medicine
DX: I21.4 Non-ST elevation (NSTEMI) myocardial infarction (principal); I50.43 Acute on chronic combined systolic (congestive) and diastolic (congestive) heart failure; J18.9 Pneumonia, unspecified organism; I25.119 Atherosclerotic heart disease of native coronary artery with unspecified angina pectoris; I11.0 Hypertensive heart disease with heart failure; Z86.73 Personal history of transient ischemic attack (TIA), and cerebral infarction without residual deficits; I70.8 Atherosclerosis of other arteries; I48.91 Unspecified atrial fibrillation; I25.9 Chronic ischemic heart disease, unspecified; I27.20 Pulmonary hypertension, unspecified
CPT/HCPCS: 36415; 36600; 71045; 80053; 80061; 82805; 83605; 83735; 83880; 84145; 84443; 84484; 85025; 85610; 86403; 87040; 87426; 87449; 93005; 93306; 93454; 94640; 94660; 96360; 96365; 96367; 96372; 99152; 99153; 99291; C1769; C1887; C1894; J0360; J0456; J0696; J1644; J1650; J1940; J2250; J2405; J3010; J3490; J7030; J7050; J7614; Q9967

== ENCOUNTER → 2022-07-05 09:37 | Outpatient (BNVA) | payer MEDICARE, OTHER, SELFPAY | PROVIDERS: PCP Family Medicine; Visit Provider Nurse Practitioner Family | DX: I25.10 Atherosclerotic heart disease of native coronary artery without angina pectoris (principal); I48.91 Unspecified atrial fibrillation; I21.4 Non-ST elevation (NSTEMI) myocardial infarction; Z79.01 Long term (current) use of anticoagulants | CPT/HCPCS: 36415; 80048; 93005; 99214 ==

== ENCOUNTER → 2022-08-29 12:05 | Outpatient (BNVA) | payer MEDICARE, OTHER, SELFPAY | PROVIDERS: PCP Family Medicine; Visit Provider Internal Medicine Cardiovascular Disease | DX: R94.39 Abnormal result of other cardiovascular function study (principal); R06.02 Shortness of breath; E78.5 Hyperlipidemia, unspecified; N18.9 Chronic kidney disease, unspecified; Z09 Encounter for follow-up examination after completed treatment for conditions other than malignant neoplasm; I48.91 Unspecified atrial fibrillation; I25.10 Atherosclerotic heart disease of native coronary artery without angina pectoris; I70.8 Atherosclerosis of other arteries; M79.89 Other specified soft tissue disorders | CPT/HCPCS: 80048; 80076; 83880; 84443; 99214 ==

== ENCOUNTER → 2023-01-26 10:25 | Outpatient (BNVA) | payer MEDICARE, OTHER, SELFPAY | PROVIDERS: PCP Family Medicine; Visit Provider Family Medicine | DX: I10 Essential (primary) hypertension (principal); Z86.79 Personal history of other diseases of the circulatory system; I25.10 Atherosclerotic heart disease of native coronary artery without angina pectoris; E78.5 Hyperlipidemia, unspecified | CPT/HCPCS: 80053; 80061; 85025 ==

== ENCOUNTER → 2023-06-16 09:37 | Outpatient (BNVA) | payer MEDICARE, OTHER, SELFPAY | PROVIDERS: PCP Family Medicine; Visit Provider Internal Medicine Cardiovascular Disease | DX: Z86.79 Personal history of other diseases of the circulatory system (principal); I25.10 Atherosclerotic heart disease of native coronary artery without angina pectoris; E78.5 Hyperlipidemia, unspecified; I10 Essential (primary) hypertension; I70.8 Atherosclerosis of other arteries; M79.89 Other specified soft tissue disorders; Z79.01 Long term (current) use of anticoagulants | CPT/HCPCS: 99214 ==

== ENCOUNTER → 2023-11-29 11:31 | Outpatient (BNVA) | payer MEDICARE, OTHER, SELFPAY | PROVIDERS: PCP Family Medicine; Visit Provider Family Medicine | DX: I10 Essential (primary) hypertension (principal); Z86.79 Personal history of other diseases of the circulatory system; E78.5 Hyperlipidemia, unspecified; I25.10 Atherosclerotic heart disease of native coronary artery without angina pectoris | CPT/HCPCS: 80053; 80061; 85025 ==

== ENCOUNTER → 2024-01-30 14:12 | Outpatient (BNVA) | payer MEDICARE, OTHER, SELFPAY | PROVIDERS: PCP Family Medicine; Visit Provider Internal Medicine | DX: I48.91 Unspecified atrial fibrillation (principal); I25.10 Atherosclerotic heart disease of native coronary artery without angina pectoris; E78.5 Hyperlipidemia, unspecified; I10 Essential (primary) hypertension; I70.8 Atherosclerosis of other arteries; M79.89 Other specified soft tissue disorders; Z79.01 Long term (current) use of anticoagulants | CPT/HCPCS: 99214 ==

== ENCOUNTER → 2024-06-04 10:39 | Outpatient (BNVA) | payer MEDICARE, OTHER, SELFPAY | PROVIDERS: PCP Family Medicine; Visit Provider Family Medicine | DX: Z86.79 Personal history of other diseases of the circulatory system (principal); I10 Essential (primary) hypertension; I25.10 Atherosclerotic heart disease of native coronary artery without angina pectoris; E78.5 Hyperlipidemia, unspecified | CPT/HCPCS: 80053; 80061; 85025 ==

== ENCOUNTER → 2024-08-08 11:20 | Outpatient (BNVA) | payer MEDICARE, OTHER, SELFPAY | PROVIDERS: PCP Family Medicine; Visit Provider Internal Medicine | DX: I48.91 Unspecified atrial fibrillation (principal); I25.10 Atherosclerotic heart disease of native coronary artery without angina pectoris; E78.5 Hyperlipidemia, unspecified; I10 Essential (primary) hypertension; I70.8 Atherosclerosis of other arteries; M79.89 Other specified soft tissue disorders; Z79.01 Long term (current) use of anticoagulants | CPT/HCPCS: 99214 ==

== ENCOUNTER → 2025-08-21 13:17 | Outpatient (BNVA) | payer MEDICARE, OTHER, SELFPAY | PROVIDERS: PCP Family Medicine; Visit Provider Family Medicine | DX: I10 Essential (primary) hypertension (principal); E78.5 Hyperlipidemia, unspecified | CPT/HCPCS: 80053; 80061; 85025 ==